=== PATIENT | female | born 1940 | race Caucasian/White ===

== ENCOUNTER 2023-09-26 13:03 | Outpatient (AMB) | payer MEDICARE, OTHER, SELFPAY ==
--- NOTE | 2023-09-26 13:17 | HO.NEPHOV_ITS ---
Intake Vital Signs 09/26/23 13:21 Height 5 ft Weight 190 lb BMI 37.1 BP 130/78 Blood Pressure Location Rt brachial Position Sitting Pulse 96 Pulse Source Pulse Oximeter Intake Visit Reasons: CKD Automatic Casting Machine Operator Required: No Accompanied by: Brother Allergies No Known Allergies Allergy (Verified 09/26/23 13:17) HPI HPI Comments History of Present Illness Details Veronica is a elderly woman with a history of ischemic cardiomyopathy wi th EF of 25% by echo and 44% by nuclear. She has a history of chronic kidney disease. Back in April of 2023 she sustained acute kidney injury with a creatinine peaking at 2.5 mg/dL. Recent creatinine is 1.3 mg/dL. She is currently in a wheelchair. Accompanied by her son. She is waiting for home oxygen. Assessment & Plan Assessment & Plan (1) CKD (chronic kidney disease) stage 3, GFR 30-59 ml/min: Code(s): N18.30 - Chronic kidney disease, stage 3 unspecified Qualifiers: Chronic kidney disease stage 3 subtype: stage 3b (GFR 30-44) Qualified Code(s): N18.32 - Chronic kidney disease, stage 3b Plan CKD 3B. SUAD has resolved. Serum creatinine has returned to 1.3 mg/dL. Renal ultrasound?suggestive of right renal atrophy, however no obstructive etiology -Losartan on hold Continue to avoid nephrotoxic agents including NSAIDs. She will benefit from SGLT 2 inhibitors. Chronic heart failure with reduced ejection fraction, EF 25 to 30% Appears well compensated. She will continue to follow-up with cardiology. Hypertension : Blood pressure is acceptable. She continue with the low-sodium diet. No change in antihypertensive medications. Edema : Keep torsemide po 40mg 2x/day Normocytic anemia Thrombocytopenia, ?chronic, at baseline Status post colostomy/history of intestinal obstruction Patient has had colostomy for many years, no blood loss has been reported from colostomy. h/o Left thyroid lobe CT: Left thyroid lobe 2.5 cm isodense nodule is unchanged from 2017. Orders: Orders Blood Urea Nitrogen 4 Months N18.30 - Chronic kidney disease, stage 3 unspecified Calcium 4 Months N18.30 - Chronic kidney disease, stage 3 unspecified Electrolytes 4 Months N18.30 - Chronic kidney disease, stage 3 unspecified Creatinine 4 Months N18.30 - Chronic kidney disease, stage 3 unspecified Complete Blood Count Auto Diff 4 Months N18.30 - Chronic kidney disease, stage 3 unspecified Coding Level of Care Code Est Pt Level 4 (60143) Diagnoses Stage 3b chronic kidney disease N18.32 Chronic kidney disease stage 3 subtype: stage 3b (GFR 30-44) [facility] Medical History (Updated 09/26/23 @ 13:48 by Torres Branham MD) CKD (chronic kidney disease) Colostomy in place Family History (Updated 09/26/23 @ 13:20 by Ro Theodore MA) Mother CKD (chronic kidney disease) Father Cancer Maternal Grandmother CKD (chronic kidney disease) Social History (Updated 09/26/23 @ 13:20 by Ro Theodore MA) Alcohol intake: never Patient Tobacco Use Status: Former Tobacco user Use of substances other than those prescribed or required for medical reasons: No Results Reviewed Results Reviewed: As of August 29 toe Sodium 143 Potassium 3.6 BUN 39 Creatinine 1.3 Hemoglobin 12.3
[2023-09-26 13:21] VITALS: BP 130/78; PULSE 96; BMI 37.1
== END 2023-09-26 13:39 | disposition home or self-care (01) ==
PROVIDERS: Visit Provider Internal Medicine Hypertension Specialist
DX: I12.9 Hypertensive chronic kidney disease with stage 1 through stage 4 chronic kidney disease, or unspecified chronic kidney disease (principal)
CPT/HCPCS: 99214

== ENCOUNTER → 2023-09-26 13:03 | Outpatient (BNVA) | payer MEDICARE, OTHER, SELFPAY | PROVIDERS: Visit Provider Internal Medicine Hypertension Specialist | DX: N18.32 Chronic kidney disease, stage 3b (principal); D64.9 Anemia, unspecified; D69.6 Thrombocytopenia, unspecified | CPT/HCPCS: 99212 ==

== ENCOUNTER 2024-02-19 13:49 | Outpatient (AMB) | payer MEDICARE, OTHER, SELFPAY ==
[2024-02-19 13:51] VITALS: BP 168/52; PULSE 82; O2SAT 98; BMI 35.2
--- NOTE | 2024-02-19 13:51 | HO.NEPHOV ---
HPI HPI Comments History of Present Illness Details Veronica is a elderly woman with a history of ischemic cardiomyopathy with EF of 25% by echo and 44% by nuclear. She has a history of chronic kidney disease. Back in April of 2023 she sustained acute kidney injury with a creatinine peaking at 2.5 mg/dL. She is currently in a wheelchair. Accompanied by her son. She is on home oxygen. [facility] Medical History (Updated 09/26/23 @ 13:48 by Torres Branham MD) CKD (chronic kidney disease) Colostomy in place Family History Mother CKD (chronic kidney disease) Father Cancer Maternal Grandmother CKD (chronic kidney disease) Social History Alcohol intake: never Patient Tobacco Use Status: Former Tobacco user Vital Signs 02/19/24 13:51 02/19/24 14:12 Height 5 ft Weight 180 lb BMI 35.2 BP 168/52 H 140/60 H Blood Pressure Location Lt brachial Rt brachial Position Sitting Sitting Pulse 82 Pulse Source Pulse Oximeter Pulse Oximetry (%) 98 Oxygen Delivery Method Room Air Physical Exam Vital Signs: Last Vital Signs Pulse 82 02/19/24 13:51 BP 168/52 H 02/19/24 13:51 Pulse Ox 98 02/19/24 13:51 Oxygen Delivery Method Room Air 02/19/24 13:51 BMI result Body Mass Index 35.2 Const General: comfortable Nutritional Appearance: well nourished Orientation/consciousness: patient oriented x3 Limitations: wheelchair HEENT Head: No normal to inspection Mouth: moist mucous membranes Neck Neck: Yes supple and Yes no JVD Resp Auscultation: clear to auscultation bilaterally, no rales and rub present Cardio Jugular venous distension: no JVD Palpation: no palpable S3 and no palpable S4 Heart sounds: no rubs GI Palpation (GI): Soft to palpation and nontender Percussion: No Fluid wave present General: Yes no CVA tenderness Back/Spine/Pelvis Back: no CVA tenderness Skin General skin exam: no rashes or lesions noted Neuro General: patient oriented x3 Extrem General: No clubbing Right lower extremity: ankle Left lower extremity: ankle Assessment & Plan Assessment & Plan (1) CKD (chronic kidney disease) stage 3, GFR 30-59 ml/min: Code(s): N18.30 - Chronic kidney disease, stage 3 unspecified Qualifiers: Chronic kidney disease stage 3 subtype: stage 3b (GFR 30-44) Qualified Code(s): N18.32 - Chronic kidney disease, stage 3b Plan CKD 3B. Renal ultrasound?suggestive of right renal atrophy, however no obstructive etiology -Losartan on hold Continue to avoid nephrotoxic agents including NSAIDs. OK to stop Omeprazole She will benefit from SGLT 2 inhibitors. Chronic heart failure with reduced ejection fraction, EF 25 to 30% Appears well compensated. She will continue to follow-up with cardiology. Hypertension : Blood pressure is acceptable. She continue with the low-sodium diet. No change in antihypertensive medications. Edema : Keep torsemide po 40mg 2x/day Normocytic anemia Thrombocytopenia, ?chronic, at baseline Status post colostomy/history of intestinal obstruction Patient has had colostomy for many years, no blood loss has been reported from colostomy. h/o Left thyroid lobe CT: Left thyroid lobe 2.5 cm isodense nodule is unchanged from 2017. Orders: Orders TSH reflex Free T4 4 Months N18.30 - Chronic kidney disease, stage 3 unspecified Complete Blood Count no Diff 4 Months N18.30 - Chronic kidney disease, stage 3 unspecified Comprehensive Met. Panel 4 Months N18.30 - Chronic kidney disease, stage 3 unspecified, N18.9 - Chronic kidney disease, unspecified Coding Level of Care Code Est Pt Level 4 (07319) Diagnoses Stage 3b chronic kidney disease N18.32 Chronic kidney disease stage 3 subtype: stage 3b (GFR 30-44) Results Reviewed Nephrology Results: No Data to Display
[2024-02-19 14:12] VITALS: BP 140/60
== END 2024-02-19 14:25 | disposition home or self-care (01) ==
PROVIDERS: Visit Provider Internal Medicine Hypertension Specialist
DX: N18.32 Chronic kidney disease, stage 3b (principal)
CPT/HCPCS: 99214

== ENCOUNTER → 2024-02-19 13:49 | Outpatient (BNVA) | payer MEDICARE, OTHER, SELFPAY | PROVIDERS: Visit Provider Internal Medicine Hypertension Specialist | DX: N18.32 Chronic kidney disease, stage 3b (principal) | CPT/HCPCS: 99212 ==

== ENCOUNTER → 2024-06-17 08:44 | Outpatient (BNVA) | payer MEDICARE, OTHER, SELFPAY | PROVIDERS: PCP Physician Assistant Medical; Visit Provider Internal Medicine Hypertension Specialist ==

== ENCOUNTER → 2024-06-17 10:29 | Outpatient (AMB) | payer MEDICARE, OTHER, SELFPAY ==
--- NOTE | 2024-06-17 08:44 | HO.NEPHOV_ITS ---
Intake Visit Reasons: 4 MONTH F/U Psychologist Private Practice Required: No Accompanied by: Self / Same As Patient Allergies No Known Allergies Allergy (Verified 06/17/24 08:45) HPI Comments Details: Veronica is a elderly woman with a history of ischemic cardiomyopathy with EF of 25% by echo and 44% by nuclear. She has a history of chronic kidney disease. Back in April of 2023 she sustained acute kidney injury with a creatinine peaking at 2.5 mg/dL. She is currently in a wheelchair. Accompanied by her son. She is on home oxygen. [facility] Medical History (Updated 09/26/23 @ 13:48 by Torres Branham MD) CKD (chronic kidney disease) Colostomy in place Family History Mother CKD (chronic kidney disease) Father Cancer Maternal Grandmother CKD (chronic kidney disease) Social History Alcohol intake: never Patient Tobacco Use Status: Former Tobacco user Telehealth Telehealth Location of provider rendering services: practice address Location of patient: address on file Patient Identification confirmed using: Name, : Yes Telehealth method: voice only Patient verbally consented to treatment: Yes Patient verbally consented to billing insurance company: Yes Patient informed of any privacy concerns related to visit: Yes Minutes spent on Phone/Video with Pt.: 10 Results Reviewed Nephrology Results: No Data to Display Assessment & Plan Assessment & Plan (1) CKD (chronic kidney disease) stage 3, GFR 30-59 ml/min: Code(s): N18.30 - Chronic kidney disease, stage 3 unspecified Category: Medical Qualifiers: Chronic kidney disease stage 3 subtype: stage 3b (GFR 30-44) Qualified Code(s): N18.32 - Chronic kidney disease, stage 3b Plan CKD 3B. Renal ultrasound?suggestive of right renal atrophy, however no obstructive etiology -Losartan on hold Continue to avoid nephrotoxic agents including NSAIDs. OK to stop Omeprazole She will benefit from SGLT 2 inhibitors. Chronic heart failure with reduced ejection fraction, EF 25 to 30% Appears well compensated. She will continue to follow-up with cardiology. Hypertension : Blood pressure is acceptable. She continue with the low-sodium diet. No change in antihypertensive medications. Edema : Keep torsemide po 40mg 2x/day Normocytic anemia Thrombocytopenia, ?chronic, at baseline Status post colostomy/history of intestinal obstruction Patient has had colostomy for many years, no blood loss has been reported from colostomy. h/o Left thyroid lobe CT: Left thyroid lobe 2.5 cm isodense nodule is unchanged from 2017. Orders: Orders Comprehensive Met. Panel Today N18.32 - Chronic kidney disease, stage 3b Complete Blood Count Auto Diff Today N18.32 - Chronic kidney disease, stage 3b Coding Level of Care Code Tele Est Pt Level 2 (98636) Diagnoses Stage 3b chronic kidney disease N18.32 Chronic kidney disease stage 3 subtype: stage 3b (GFR 30-44)
== END | disposition home or self-care (01) ==
LOC: HO.HKAS 08:44
PROVIDERS: PCP Physician Assistant Medical; Visit Provider Internal Medicine Hypertension Specialist
DX: N18.32 Chronic kidney disease, stage 3b (principal)
CPT/HCPCS: 99441

== ENCOUNTER 2024-10-21 13:30 | Outpatient (AMB) | payer MEDICARE, OTHER, SELFPAY ==
[2024-10-21 13:30] VITALS: BMI 33.8
--- NOTE | 2024-10-21 13:30 | HO.NEPHOV ---
Vital Signs 10/21/24 13:30 Height 5 ft Weight 173 lb BMI 33.8 Intake Visit Reasons: 4 mo fu w/ labs/ Conf Preformer [employer] Required: No Accompanied by: Self / Same As Patient Allergies No Known Allergies Allergy (Verified 10/21/24 13:30) Medication List - Last Reconciled 10/21/24 by Torres Branham MD albuterol sulfate 90 mcg/actuation inhalation carvedilol 25 mg PO BID ferrous sulfate 325 mg PO BID hydralazine 50 mg PO QID nifedipine ER 90 mg PO DAILY pantoprazole 40 mg PO DAILY rosuvastatin 5 mg PO DAILY spironolactone 25 mg PO DAILY torsemide 40 mg PO BID HPI Comments Details: Veronica is a elderly woman with a history of ischemic cardiomyopathy with EF of 25% by echo and 44% by nuclear. She has a history of chronic kidney disease. Back in April of 2023 she sustained acute kidney injury with a creatinine peaking at 2.5 mg/dL. She is currently in a wheelchair. Accompanied by her son. She is on home oxygen. [facility] Medical History (Updated 09/26/23 @ 13:48 by Torres Branham MD) CKD (chronic kidney disease) Colostomy in place Family History Mother CKD (chronic kidney disease) Father Cancer Maternal Grandmother CKD (chronic kidney disease) Social History Alcohol intake: never Patient Tobacco Use Status: Former Tobacco user Physical Exam Vital Signs: BMI result Body Mass Index 33.8 Telehealth Telehealth Telehealth Platform: Telephone Location of provider rendering services: practice address Location of patient: address on file Telehealth method: voice only Results Reviewed Nephrology Results: No Data to Display Assessment & Plan Assessment & Plan (1) CKD (chronic kidney disease) stage 3, GFR 30-59 ml/min: Code(s): N18.30 - Chronic kidney disease, stage 3 unspecified Category: Medical Qualifiers: Chronic kidney disease stage 3 subtype: stage 3b (GFR 30-44) Qualified Code(s): N18.32 - Chronic kidney disease, stage 3b Plan CKD 3B. Renal ultrasound?suggestive of right renal atrophy, however no obstructive etiology -Losartan on hold Continue to avoid nephrotoxic agents including NSAIDs. OK to stop Omeprazole She will benefit from SGLT 2 inhibitors. Chronic heart failure with reduced ejection fraction, EF 25 to 30% Appears well compensated. She will continue to follow-up with cardiology. Hypertension : Blood pressure is acceptable. She continue with the low-sodium diet. No change in antihypertensive medications. Edema : Keep torsemide po 40mg 2x/day Normocytic anemia Thrombocytopenia, ?chronic, at baseline Status post colostomy/history of intestinal obstruction Patient has had colostomy for many years, no blood loss has been reported from colostomy. h/o Left thyroid lobe CT: Left thyroid lobe 2.5 cm isodense nodule is unchanged from 2017. Orders: Orders Basic Metabolic Panel 4 Months N18.32 - Chronic kidney disease, stage 3b Coding Level of Care Code Tele Est Pt Level 2 (80220) Diagnoses Stage 3b chronic kidney disease N18.32 Chronic kidney disease stage 3 subtype: stage 3b (GFR 30-44) Time Spent (min) 14
== END 2024-10-21 16:55 | disposition home or self-care (01) ==
PROVIDERS: PCP Physician Assistant Medical; Visit Provider Internal Medicine Hypertension Specialist
DX: N18.32 Chronic kidney disease, stage 3b (principal)
CPT/HCPCS: 99442

== ENCOUNTER 2025-02-17 09:42 | Outpatient (AMB) | payer MEDICARE, OTHER, SELFPAY ==
[2025-02-17 09:44] VITALS: BP 162/62; PULSE 69; O2SAT 97
--- NOTE | 2025-02-17 09:44 | HO.NEPHOV ---
Vital Signs 02/17/25 09:44 02/17/25 09:58 Height 5 ft BP 162/62 H 134/60 Blood Pressure Location Lt brachial Lt brachial Position Sitting Sitting Pulse 69 Pulse Source Pulse Oximeter Pulse Oximetry (%) 97 Oxygen Delivery Method Room Air Intake Visit Reasons: CKD/ Conf Automatic Grinding Machine Operator Required: No Accompanied by: Spouse Allergies No Known Allergies Allergy (Verified 02/17/25 09:46) Medication List - Last Reconciled 02/17/25 by Torres Branham MD albuterol sulfate 90 mcg/actuation inhalation carvedilol 25 mg PO BID ferrous sulfate 325 mg PO BID hydralazine 50 mg PO QID nifedipine ER 90 mg PO DAILY pantoprazole 40 mg PO DAILY rosuvastatin 5 mg PO DAILY spironolactone 50 mg PO DAILY torsemide 40 mg PO BID HPI Comments Details: Veronica is a elderly woman with a history of ischemic cardiomyopathy with EF of 25% by echo and 44% by nuclear. She has a history of chronic kidney disease. Back in April of 2023 she sustained acute kidney injury with a creatinine peaking at 2.5 mg/dL. She is currently in a wheelchair. Accompanied by her son. She is on home oxygen. [facility] Medical History (Updated 02/17/25 @ 10:00 by Torres Branham MD) CKD (chronic kidney disease) Colostomy in place Family History Mother CKD (chronic kidney disease) Father Cancer Maternal Grandmother CKD (chronic kidney disease) Social History Alcohol intake: never Patient Tobacco Use Status: Former Tobacco user Physical Exam Vital Signs: Last Vital Signs Pulse 69 02/17/25 09:44 BP 162/62 H 02/17/25 09:44 Pulse Ox 97 02/17/25 09:44 Oxygen Delivery Method Room Air 02/17/25 09:44 Const General: comfortable Nutritional Appearance: well nourished Orientation/consciousness: patient oriented x3 Limitations: wheelchair HEENT Head: No normal to inspection Mouth: moist mucous membranes Neck Neck: Yes supple and Yes no JVD Resp Auscultation: clear to auscultation bilaterally and no rales Cardio Jugular venous distension: no JVD Palpation: no palpable S3 and no palpable S4 Heart sounds: no rubs GI Palpation (GI): Soft to palpation and nontender Percussion: No Fluid wave present General: Yes no CVA tenderness Back/Spine/Pelvis Back: no CVA tenderness Skin General skin exam: no rashes or lesions noted Neuro General: patient oriented x3 Extrem General: No clubbing Right lower extremity: ankle Left lower extremity: ankle Results Reviewed Nephrology Results: No Data to Display Assessment & Plan Assessment & Plan (1) CKD (chronic kidney disease) stage 3, GFR 30-59 ml/min: Comment: Cr 1.75 as on 02/11/25 Code(s): N18.30 - Chronic kidney disease, stage 3 unspecified Category: Medical Qualifiers: Chronic kidney disease stage 3 subtype: stage 3b (GFR 30-44) Qualified Code(s): N18.32 - Chronic kidney disease, stage 3b Plan CKD 3B. Renal ultrasound?suggestive of right renal atrophy, however no obstructive etiology -Losartan on hold Continue to avoid nephrotoxic agents including NSAIDs. OK to stop Omeprazole She will benefit from SGLT 2 inhibitors. Chronic heart failure with reduced ejection fraction, EF 25 to 30% Appears well compensated. She will continue to follow-up with cardiology. Hypertension : Blood pressure is acceptable. She continue with the low-sodium diet. No change in antihypertensive medications. Edema : Keep torsemide po 40mg 2x/day Normocytic anemia Thrombocytopenia, ?chronic, at baseline Status post colostomy/history of intestinal obstruction Patient has had colostomy for many years, no blood loss has been reported from colostomy. h/o Left thyroid lobe CT: Left thyroid lobe 2.5 cm isodense nodule is unchanged from 2017. Orders: Orders Basic Metabolic Panel 6 Months N18.32 - Chronic kidney disease, stage 3b Complete Blood Count no Diff Today N18.32 - Chronic kidney disease, stage 3b Coding Level of Care Code Est Pt Level 4 (09196) Diagnoses Stage 3b chronic kidney disease N18.32 Chronic kidney disease stage 3 subtype: stage 3b (GFR 30-44)
[2025-02-17 09:58] VITALS: BP 134/60
--- OUTSIDE RECORDS SUMMARY | 2025-02-17 10:52 | XMS_ITS | Encounter Summary ---
Author Organization [facility] Address [address] [place] [address] Care Team Providers Care Tower Erector Helper Name Role Phone Jamal Roman Primary Care Provider [phone] Reason for Visit * Reason Onset Date Comments Cough 01/18/2025 Encounter Details Date Type Department Care Team ([facility] st Contact Info) Description 01/18/2025 Telephone Adult Medicine [facility] [address] [place] [phone] Jamal Roman PA [address] [place] [address] Cough Social History Tobacco Use Types Packs/Day Years Used Date Smoking Tobacco: Former Cigarettes 0.5 1.1 1 - 10/10/2021 Smokeless Tobacco: Current Alcohol Use Standard Drinks/Week Comments Yes 0 (1 standard drink = 0.6 oz pur e alcohol) Comments Unknown Sex and Gender Information Value Date Recorded Sex Assigned at Not on file Legal Sex Female 11:14 AM EST Gender Identity Not on file Sexual Orientation Not on file documented as of this encounter Progress Notes * Misa Ventura RN - 01/18/2025 10:39 AM EST Spoke with the pt She is having problems breathing When sitting quiet she is ok with her breathing She gets SOB when moving around. States she has a lot of mucous. He daughter is giving her a pill but she doesn't know the name of it She is breathing a little better today. Asking for an ABX Advised not able to give an ABX without a visit for eval She is speaking incomplete sentences, no cough, wheeze, stridor or distress noted. Scheduled eval for 01/19 at 11 am * Yanely Araya - 01/18/2025 9:12 AM EST Patient call requires triage: Symptoms patient is presenting: patient is calling in today stating she has a cough and has a trouble breathing, also spitting up mucus. PT is requesting antibiotics to be sent to pharmacy she doesn't want to come in How long has patient had these symptoms?: 1 week For ALL patients calling to schedule any appointment (routine, sick visit, follow up, consult, etc.) in the outpatient setting please ask the following questions: Do you have fever of higher than 101, sore throat with difficulty swallowing or severe shortness ofbreath? no If YES to any of these above symptoms, send a message to triage and do not book. Red dot. If no, an audio or video visit should be booked. Have you had close contact with someone with Coronavirus in the last 14 days? no Have you traveled abroad? no Have you traveled recently to another state outside of [place], [place], [place], [place], [place], [place], [place]? no o If yes, did you quarantine for 14 days or have a negative covid test? no If yes to any of the above, patient is not to be scheduled in office until after 14 day quarantine or negative covid test. If pain or injury related was it due to an accident at work or from a motor vehicle accident? If yes, date of accident/Injury: No If yes, gather 3rd libertarian insurance information [employer] Party Information: not applicable PCP: LAURI Trinidad Payor: MEDICARE / Plan: MEDICARE PART A & B / Product Type: Medicare / documented in this encounter Plan of Treatment Upcoming Encounters Date Type Department Care Team ([facility] st Contact Info) Description 02/24/2025 12:30 PM EDT [facility] [address] [place] [address] Kaushal Fernandez 02/24/2025 1:20 PM EDT [facility] [address] [place] [address] Salima Martinez, JAYNE [address] [facility] [address] [place] [address] 05/26/2025 2:30 PM EDT Office Visit Adult Medicine [facility] [address] [place] [address] Jamal Roman PA [address] [place] [address] documented as of this encounter Visit Diagnoses Not on filedocumented in this encounter Care Teams Tower Erector Helper Relationship Specialty Start Date End Date Jamal Roman PA [address] [place] [id number] PCP - General Internal Medicine 02/22/21 documented as of this encounter
--- OUTSIDE RECORDS SUMMARY | 2025-02-17 10:52 | XMS_ITS | Encounter Summary ---
Author Organization [facility] Address [address] [place] [address] Care Team Providers Care College Service Officer Name Role Phone Jamal Roman Primary Care Provider [phone] [phone] Reason for Visit * Reason Comments Cough Shortness of Breath Encounter Details Date Type Department Care Team ([facility] st Contact Info) Description 01/19/2025 11:15 AM EST Office Visit Adult Medicine [address] [address] Dinora Bravo PA [address] [place] [phone] Chronic obstructive pulmonary disease with acute exacerbation (CMS/HCC) (Primary Dx); Chronic hypoxemic respiratory failure (CMS/HCC); Stage 3b chronic kidney disease (CMS/HCC); Upper respiratory tract infection, unspecified type; Essential hypertension, benign Social History Tobacco Use Types Packs/Day Years [...] on file documented as of this encounter Last Filed Vital Signs Vital Sign Reading Time Taken Comments Blood Pressure 165/100 01/19/2025 11:08 AM EST Pulse 71 01/19/2025 11:08 AM EST Temperature 36.6 ??C (97.9 ??F) 01/19/2025 11:[address] Respiratory Rate 16 01/19/2025 11:08 AM EST Oxygen Saturation 93% 01/19/2025 11:08 AM EST Inhaled Oxygen Concentration - - Weight 76.7 kg (169 lb) 01/19/2025 11:08 AM EST Height 152.4 cm (5') 01/19/2025 11:08 AM EST Body Mass Index 33.01 01/19/2025 11:08 AM EST documented in this encounter Ordered Prescriptions Prescription Sig Dispense Quantity Refills Last Filled Start Date End Date albuterol HFA (Proventil HFA) 90 mcg/actuation inhalerIndications :Chronic obstructive pulmonary disease with acute exacerbation ([facility]),Chronic hypoxemic respiratory failure,Stage 3b chronic kidney disease ([facility]),Upper respiratory tract infection, unspecified type,Essential hypertension, benign Inhale 2 puffs by mouth every 4 (four) hours if needed for wheezing or shortness of breath. 6.7 g 01/19/2025 amoxicillin-clavul anate (AUGMENTIN) 875-125 mg per tablet Take 1 tablet by mouth 2 (two) times a day for 10 days. 20 each 01/19/2025 5 documented in this encounter Progress Notes * LAURI Tran - 01/19/2025 11:15 AM EST CHIEF COMPLAINT: Cough and Shortness of Breath IDENTIFIER: Veronica Quan is a 84 y.o. old female. HPI: Veronica Quan is a 84 y.o. old female with past medical history of COPD, chronic hypoxia on 2L O2 supplement, former smoker presents today for evaluation of ongoing cough, shortness of breath for over 1 week. She reports productive cough. No fevers. Reports chills. She states sputum is green and white in color. She reports sick contact with her adult children whoshe currently lives with. She has trial otc medications without relief. She has history of CKD and her last GFR stable. ROS: See HPI PAST MEDICAL HISTORY: Patient Active Problem List Diagnosis Date Noted Chronic hypoxemic respiratory failure ([facility]) 08/01/2023 Stage 2 moderate COPD by GOLD classification ([facility]) 08/01/2023 Acute on chronic systolic congestive heart failure [place] 11/09/[address] [place] 09/21/2021 Congenital solitary kidney 09/21/2021 Unsteady gait 09/23/2019 CKD (chronic kidney disease) stage 3, GFR 30-59 ml/min ([facility] 01/09/2019 Mixed hyperlipidemia 06/18/2017 Nephrolithiasis 12/24/2016 Morbid obesity ([facility]) 11/11/2014 Contact dermatitis and eczema 11/19/2006 Essential hypertension, benign 11/19/2006 Past Surgical History: Procedure Laterality Date COLONOSCOPY 10/27/07 PROCEDURE: KS COLONOSCOPY STOMA DX INCLUDING COLLJ SPEC SPX; COMMENT: Up to cecum, regular preparation, sigmoid polyp-removed(tubular adenoma) COLONOSCOPY 05/04/11 PROCEDURE: KS COLONOSCOPY STOMA DX INCLUDING COLLJ SPEC SPX; COMMENT: normal; repeat in five eyars CYSTOSCOPY 12/16/16 PROCEDURE: HISTORICAL CYSTOSCOPY; COMMENT: R UVJ stent OTHER SURGICAL HISTORY PROCEDURE: HISTORICAL TOTAL HYSTERECTOMY W/O BSO OTHER SURGICAL HISTORY PROCEDURE: LAPAROSCOPIC CHOLECYSTECT OTHER SURGICAL HISTORY 2018 PROCEDURE: KS COLOSTOMY/SKIN LEVEL CECOSTOMY; COMMENT: bmc large bowel obstruction due to incarcerated umbilical hernia requiring colostomy SOCIAL HISTORY: Social History Tobacco Use Smoking status: Former Current packs/day: 0.00 Average packs/day: 0.5 packs/day for 1.1 years (0.6 ttl pk-yrs) Types: Cigarettes Start date: 08/25/2020 Quit date: 10/10/2021 Years since quittin.2 Smokeless tobacco: Current Substance Use Topics Alcohol use: Yes FAMILY HISTORY: Family History Problem Relation Name Age of Onset Breast cancer Neg Hx Family Status Relation Name Status Neg Hx (Not Specified) Mother ?DM, CHF Father some form of bone cancer Sister Alive 1, no known medical problems Brother Alive 3, no known medical problems Son Alive Brother Alive Brother Alive No partnership data on file MEDICATIONS DISCONTINUED/REORDERED: Medications Discontinued During This Encounter Medication Reason albuterol HFA (PROAIR HFA ; PROVENTIL HFA ; VENTOLIN HFA) 90 mcg/actuation inhaler Reorder ACTIVE MEDICATIONS: Outpatient Medications Marked as Taking for the 01/19/25 encounter (Office Visit) with LAURI Tran Medication Sig Dispense Refill acetaminophen (TYLENOL) 325 mg tablet 650 mg, = 2 tab, Tab, Oral, q4hr PRN, Refills 0, Moderate pain ascorbic acid, vitamin C, 500 mg capsule Take by mouth. aspirin 81 mg EC tablet Take 1 tablet (81 mg total) by mouth. carvediloL (COREG) 25 mg tablet TAKE 1 TABLET BY MOUTH TWICE A DAY 180 tablet 3 cholecalciferol (VITAMIN D-3) 25 mcg (1,000 unit) capsule Take 25 mcg by mouth. ferrous sulfate 325 mg (65 mg elemental iron) tablet Take 1 tablet (325 mg total) by mouth every other day. hydrALAZINE (APRESOLINE) 50 mg tablet Take 1 tablet (50 mg total) by mouth 4 (four) times a day. multivitamin (MULTIPLE VITAMINS ORAL) 1 tab, Tab, Oral, QLUNCH, Refills 0 NIFEdipine CC (ADALAT CC) 60 mg 24 hr tablet Take 1 tablet (60 mg total) by mouth 2 (two) times a day. pantoprazole (PROTONIX) 40 mg EC tablet TAKE 1 TABLET BY MOUTH EVERY DAY 90 tablet 1 rosuvastatin (CRESTOR) 5 mg tablet TAKE 1 TABLET BY MOUTH EVERY DAY 90 tablet 3 spironolactone (Aldactone) 50 mg tablet Take 1 tablet (50 mg total) by mouth 1 (one) time each day.90 each 3 torsemide (DEMADEX) 20 mg tablet Take 2 tablets (40 mg total) by mouth 2 (two) times a day. zinc sulfate (ZINCATE) 220 mg (50 mg elemental zinc) capsule Take 1 capsule (220 mg total) by mouth. [DISCONTINUED] albuterol HFA (PROAIR HFA ; PROVENTIL HFA ; VENTOLIN HFA) 90 mcg/actuation inhaler Inhale 2 puffs by mouth every 4 (four) hours if needed for wheezing. ALLERGIES: Allergies Allergen Reactions Azithromycin Anaphylaxis Anaphylaxis with azithromycin during hospitalization for pneumonia Ezetimibe tired and achy Pravastatin Tired and muscle aches Simvastatin tired and mucles aches PHYSICAL EXAM: Vitals: 01/19/25 1108 BP: (!) 165/100 Pulse: 71 Resp: 16 Temp: 36.6 ??C (97.9 ??F) SpO2: 93% APPEARANCE: Alert and in no acute distress. She is sitting in wheel chair. EYES: PERRLA, conjunctiva and sclera normal. EARS: External ears normal. Canals clear. TMs normal. NOSE/SINUS: Nares normal. Septum midline. Mucosa normal. No drainage or sinus tenderness. MOUTH/THROAT: no erythema or exudates NECK: Neck supple, no adenopathy, thyroid symmetric and of normal size HEART: RRR with normal S1 and S2, no murmurs, no gallops CHEST: non-tender to palpation, no crepitation LUNG: rales noted in the left lower lung bhagat with no wheezing or rhonchi. Able to talk in full complete sentences LABS: Results for orders placed or performed in visit on 10/08/24 Lipid panel Collection Time: 06/29/21 12:00 AM Result Value Ref Range LDL/HDL Ratio 6 (A) 0 - 4 Triglycerides 628 (A) 0 - 150 mg/dL Cholesterol 226 (A) 0 - 200 mg/dL HDL 36 (A) >=40 mg/dL LDL Cholesterol 132 (A) 0 - 100 mg/dL Annual BMP Blood Test Collection Time: 06/29/21 12:00 AM Result Value Ref Range Annual BMP Blood Test Abstracted Hm Medicare Annual Wellness Visit Collection Time: 03/16/24 12:00 AM Result Value Ref Range Medicare Annual Wellness Visit Abstracted Depression Screening Collection Time: 03/16/24 12:00 AM Result Value Ref Range Depression Screening Abstracted Falls Risk Assessment Collection Time: 03/16/24 12:00 AM Result Value Ref Range Falls Risk Assessment Abstracted IMAGING: Chest x ray ordered today. IMPRESSION: 1. Chronic obstructive pulmonary disease with acute exacerbation ([facility]) 2. Chronic hypoxemic respiratory failure ([facility]) 3. Stage 3b chronic kidney disease ([facility]) 4. Upper respiratory tract infection, unspecified type 5. Essential hypertension, benign PLAN: Patient started on Augmentin BID x 10 day and refilled albuterol inhaler q4 hours as needed for shortness of breath. Side effects discussed. I sent her down for chest x-ray today to rule out pneumonia. She will continue with O2 supplementations. Follow up with care team and bobbin loose end finder as scheduled. She was advised if any worsening symptoms she should call office or get evaluation at the ED. Blood pressure today is elevated. Patient is recommended to check BP at home and maintain a BP log.Please call our office if blood pressure more than 140/90, more than a couple of times. Follow up as needed. All questions and concerns were addressed. Veronica Quan verbalizes understanding and agrees with this treatment plan. Patient was reminded to call or return to the office if any new or existing problems arise. Orders Placed This Encounter Procedures XR Chest 2 Views None LAURI Tran on 01/19/2025 at 12:34 PM EST Today's documentation was made using voice recognition software.This note may contain grammatical errors secondary to this software. documented in this encounter Plan of Treatment Upcoming Encounters Date Type Department Care Team (Late st Contact Info) Description 02/24/2025 12:30 PM EDT Procedure visit [facility] [address] [facility] [address] [place] [phone] Kaushal Fernandez 02/24/2025 1:20 PM EDT [facility] [address] [facility] [address] [place] [address] Salima Martinez NP [address] [facility] [address] [place] [address] 05/26/2025 2:30 PM EDT Office Visit Adult Medicine [facility] [address] [place] [address] Jamal Roman PA [address] [place] [address] documented as of this encounter Results * XR Chest 2 Views (01/19/2025 11:49 AM EST) Anatomical Region Laterality Modality Body Radiographic Iwona ging 01/19/2025 12:3 5 PM EST Impressions 01/19/2025 12:37 PM EST No acute pulmonary pathology. -------- FINAL REPORT -------- Dictated By: Carmen Chatman Dictated Date: 01/19/2025 12:35 ET Assigned Physician: Carmen Chatman Reviewed and Electronically Signed By: Carmen Chatman Signed Date: 01/19/2025 12:37 ET Workstation ID: [id number] Transcribed By: Self Edit Transcribed Date: 01/19/2025 12:35 ET Narrative 01/19/2025 12:37 PM EST CHEST, TWO VIEWS HISTORY: ?? Ongoing productive cough. Smoker. COPD. TECHNIQUE: Frontal and lateral views of the chest. PRIOR: Chest x-ray 11/09/2021. FINDINGS: The lungs are clear. No pleural effusion is seen. No pneumothorax is seen. The cardiac diameter is within normal limits. Ossification of the aortic knob No acute or aggressive appearing bony abnormalities are seen. ??There is curvature and degenerative change of the spine. Procedure Note Carmen Chatman MD - 01/19/2025 CHEST, TWO VIEWS HISTORY: Ongoing productive cough. Smoker. COPD. TECHNIQUE: Frontal and lateral views of the chest. PRIOR: Chest x-ray 11/09/2021. FINDINGS: The lungs are clear. No pleural effusion is seen. No pneumothorax is seen. The cardiac diameter is within normal limits. Ossification of the aorticknob No acute or aggressive appearing bony abnormalities are seen. There iscurvature and degenerative change of the spine. IMPRESSION: No acute pulmonary pathology. -------- FINAL REPORT -------- Dictated By: Carmen Chatman Dictated Date: 01/19/2025 12:35 ET Assigned Physician: Carmen Chatman Reviewed and Electronically Signed By: Carmen Chatman Signed Date: 01/19/2025 12:37 ET Workstation ID: [id number] Transcribed By: Self Edit Transcribed Date: 01/19/2025 12:35 ET Dinora Deweyuong Andrei Shelly CARREON IMG XR PROCEDURES Final Result documented in this encounter Visit Diagnoses Diagnosis Chronic obstructive pulmonary disease with acute exacerbation (CMS/HCC)- Primary Chronic hypoxemic respiratory failure Chronic respiratory failure Stage 3b chronic kidney disease (CMS/HCC) Upper respiratory tract infection, unspecified type Essential hypertension, benign Chronic obstructive pulmonary disease, unspecified COPD type (CMS/HCC) Chronic hypoxemic respiratory failure Chronic respiratory failure Stage 2 moderate COPD by GOLD classification (CMS/HCC) Stage 3b chronic kidney disease (CMS/HCC) Upper respiratory tract infection, unspecified type Essential hypertension, benign documented in this encounter Discontinued Medications Medication Sig Discontinue Reason Start Date End Da te albuterol HFA (PROAIR HFA ; PROVENTIL HFA ; VENTOLIN HFA) 90 mcg/actuation inhaler Inhale 2 puffs by mouth every 4 (four) hours if needed for wheezing. Reorder 10/27/2023 01/19/2025 documented as of this encounter Care Teams College Service Officer Relationship Specialty Start Date End Date Jamal Roman PA [address] [place] [address] PCP - General Internal Medicine 02/22/21 documented as of this encounter
--- OUTSIDE RECORDS SUMMARY | 2025-02-17 10:53 | XMS_ITS | Encounter Summary ---
Author Organization [facility] Address [address] [place] [address] Care Team Providers Care Transportation Lead Name Role Phone Jamal Roman Primary Care Provider [phone] Encounter Details Date Type Department Care Team (Latest Contact Info) Description 01/19/2025 11:34 AM EST - 01/19/2025 11:59 PM [facility] Encounter [facility] [address] [place] [address] Chronic obstructive pulmonary disease, unspecified COPD type (CMS/HCC); Chronic hypoxemic respiratory failure (CMS/HCC); Stage 2 moderate COPD by GOLD classification (CMS/HCC); Stage 3b chronic kidney disease (CMS/HCC); Upper respiratory tract infection, unspecified type; Essential hypertension, benign Discharge Disposition: Home or Self Care Social History Tobacco Use Types Packs/Day Years [...] on file documented as of this encounter Medications at Time of Discharge acetaminophen (TYLENOL) 325 mg tablet 650 mg, = 2 tab, Tab, Oral, q4hr PRN, Refills 0, Moderate pain 01/30/2017 albuterol HFA (Proventil HFA) 90 mcg/actuation inhalerIndications :Chronic obstructive pulmonary disease with acute exacerbation (CMS/HCC),Chronic hypoxemic respiratory failure,Stage 3b chronic kidney disease (CMS/HCC),Upper respiratory tract infection, unspecified type,Essential hypertension, benign Inhale 2 puffs by mouth every 4 (four) hours if needed for wheezing or shortness of breath. 6.7 g 01/19/2025 6 ascorbic acid, vitamin C, 500 mg capsule Take by mouth. aspirin 81 mg EC tablet Take 1 tablet (81 mg total) by mouth. 09/01/2022 carvediloL (COREG) 25 mg tablet TAKE 1 TABLET BY MOUTH TWICE A DAY 180 tablet 3 12/14/2024 cholecalciferol (VITAMIN D-3) 25 mcg (1,000 unit) capsule Take 25 mcg by mouth. 10/03/2021 hydrALAZINE (APRESOLINE) 50 mg tablet Take 1 tablet (50 mg total) by mouth 4 (four) times a day. 12/24/2023 multivitamin (MULTIPLE VITAMINS ORAL) 1 tab, Tab, Oral, QLUNCH, Refills 0 01/30/2017 NIFEdipine CC (ADALAT CC) 60 mg 24 hr tablet Take 1 tablet (60 mg total) by mouth 2 (two) times a day. 12/24/2023 pantoprazole (PROTONIX) 40 mg EC tablet TAKE 1 TABLET BY MOUTH EVERY DAY 90 tablet 1 12/08/2024 rosuvastatin (CRESTOR) 5 mg tablet TAKE 1 TABLET BY MOUTH EVERY DAY 90 tablet 3 12/16/2024 spironolactone (Aldactone) 50 mg tablet Take 1 tablet (50 mg total) by mouth 1 (one) time each day. 90 each 3 11/11/2024 torsemide (DEMADEX) 20 mg tablet Take 2 tablets (40 mg total) by mouth 2 (two) times a day. 11/05/2023 zinc sulfate (ZINCATE) 220 mg (50 mg elemental zinc) capsule Take 1 capsule (220 mg total) by mouth. amoxicillin-clavul anate (AUGMENTIN) 875-125 mg per tablet Take 1 tablet by mouth 2 (two) times a day for 10 days. 20 each 01/19/2025 5 ferrous sulfate 325 mg (65 mg elemental iron) tablet Take 1 tablet (325 mg total) by mouth every other day. 03/16/2024 5 documented as of this encounter Discharge Disposition Disposition Code Departure Means Destination Home or Self Care documented in this encounter Plan of Treatment Upcoming Encounters Date Type Department Care Team (Late st Contact Info) Description 02/24/2025 12:30 PM EDT Procedure visit Pulmonolgy - [place] [address] [facility] [address] [place] [phone] Rebecca Taryndustintien 02/24/2025 1:20 PM EDT Consult Pulmonol - [place] [address] [facility] [address] [place] [phone] Salima Martinez NP [address] [facility] [address] [place] [address] 05/26/2025 2:30 PM EDT Office Visit Adult Medicine [facility] [address] [place] [address] Jamal Roman PA [address] [place] [address] documented as of this encounter Procedures Procedure Name Priority Date/Time Associated Diagnosis Comments XR CHEST 2 VIEWS Routine 01/19/2025 11:4 9 AM EST Chronic obstructive pulmonary disease, unspecified COPD type (CMS/HCC) Chronic hypoxemic respiratory failure (CMS/HCC) Stage 2 moderate COPD by GOLD classification ([facility]) Stage 3b chronic kidney disease (CMS/HCC) Upper respiratory tract infection, unspecified type Essential hypertension, benign documented in this encounter Results * XR Chest 2 [...] Signed Date: 01/19/2025 12:37 ET Workstation ID: [id number] Transcribed By: Self Edit Transcribed Date: 01/19/2025 [...] Signed Date: 01/19/2025 12:37 ET Workstation ID: [id number] Transcribed By: Self Edit Transcribed Date: 01/19/2025 12:35 ET Dinora Ivanna Andrei Shelly CARREON IMG XR PROCEDURES Final Result documented in this encounter Visit Diagnoses Diagnosis Chronic obstructive pulmonary disease, unspecified COPD type (CMS/HCC) Chronic hypoxemic respiratory failure Chronic respiratory failure Stage 2 moderate COPD by GOLD classification (CMS/HCC) Stage 3b chronic kidney disease (CMS/HCC) Upper respiratory tract infection, unspecified type Essential hypertension, benign documented in this encounter Care Teams Transportation Lead Relationship Specialty Start Date End Date Jamal Roman PA [address] [place] [address] PCP - General Internal Medicine 02/22/21 documented as of this encounter
--- OUTSIDE RECORDS SUMMARY | 2025-02-17 10:53 | XMS_ITS | Encounter Summary ---
Author Organization [facility] Address [address] [place] [address] Care Team Providers Care Guest History Clerk Name Role Phone Jamal Roman Primary Care Provider [phone] Reason for Visit * Reason Onset Date Comments durable medical equipment 02/04/2025 Encounter Details Date Type Department Care Team (Late st Contact Info) Description [facility] [address] [place] [address] Salima Martinez NP [address] [place] [address] durable medical equipment Social History Tobacco Use Types Packs/Day Years [...] as of this encounter Progress Notes * Kanchan Jordan - 02/04/2025 11:24 AM EDT Oxygen therapy wso received via fax from [facility]. Forms on patient chart (ONBASE). documented in this encounter Plan of Treatment Upcoming Encounters Date Type Department Care Team (Late st Contact Info) Description 02/24/2025 12:30 PM EDT [facility] [address] [facility] [address] [place] [address] Kaushal Fernandez 02/24/2025 1:20 PM EDT Consult Pulmonolgy - [place] [address] [facility] [address] [place] [phone] Salima Martinez, JAYNE [address] [facility] [address] [place] [address] 05/26/2025 2:30 PM EDT Office Visit Adult Medicine [facility] [address] [place] [address] Jamal Roman PA [address] [place] [address] documented as of this encounter Visit Diagnoses Not on filedocumented in this encounter Care Teams Guest History Clerk Relationship Specialty Start Date End Date Jamal Roman PA [address] [place] [phone] PCP - General Internal Medicine 02/22/21 documented as of this encounter
--- OUTSIDE RECORDS SUMMARY | 2025-02-17 10:53 | XMS_ITS | Clinical Summary ---
Author Organization [facility] Address [address] [facility] [address] [place] [address] Phone Care Team Providers Care Express Clerk Name Role Phone Jamal Roman PA-C Primary Care Provider Allergies Active Allergy Reactions Criticality Noted Date Comments Ezetimibe 05/20/2007 tired and achy Pravastatin 11/09/2015 Tired and muscle aches Simvastatin 04/15/2007 tired and mucles aches Medications cholecalciferol (VITAMIN D-3) 25 MCG (1000 UT) capsule Take 1 capsule by mouth 1 (one) time each day Active Multiple Vitamin (multivitamin) tablet Take 1 tablet by mouth 1 (one) time each day Active Zinc Sulfate (ZINC 15 PO) Take 1 tablet by mouth 1 (one) time each day Active acetaminophen (TYLENOL) 325 MG tablet 650 mg, = 2 tab, Tab, Oral, q4hr PRN, Refills 0, Moderate pain 01/30/2017 Active ascorbic acid (VITAMIN C) 500 MG CR capsule Take by mouth Ac tive carvedilol (COREG) 6.25 MG tablet Take 25 mg by mouth in the morning and 25 mg in the evening. 11/09/2021 Active losartan (COZAAR) 50 MG tablet Take 25 mg by mouth 12/05/2021 Active NIFEdipine CC (ADALAT CC) 60 MG 24 hr tablet Take 1 tablet by mouth 1 (one) time each day Active aspirin (ST RONIT) 81 MG EC tablet Take 81 mg by mouth 2 (two) times a day if needed 09/01/2022 Active atorvastatin (LIPITOR) 40 MG tablet Take 1 tablet by mouth 1 (one) time each day 08/19/2022 Active furosemide (LASIX) 40 MG tablet Take 1 tablet by mouth in the morning and 1 tablet in the evening. 07/24/2022 Active Active Problems Problem Noted Date Diagnosed Date Anemia 03/13/2023 Acute on chronic systolic congestive heart failu re 11/09/2021 Overview (02/13/2022): Patient was hospitalized for shortness of breath September 2021. 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 09/21/2021 Acidosis 08/29/2021 Acute nontraumatic kidney injury 08/29/2021 Bacteremia 08/29/2021 Hypertensive disorder 08/29/2021 Edema 08/29/2021 Hypervolemia 08/29/2021 Iron deficiency anemia 08/29/2021 Hyperlipidemia 08/29/2021 Osteoarthritis 08/29/2021 Pyelonephritis 08/29/2021 Chronic kidney disease stage 3 01/09/2019 Nephrolithiasis 12/24/2016 History of cholecystectomy 12/11/2011 Immunizations Name Administration Dates Next Due Influenza Split High Dose Pr eservative Free IM 10/13/2020,08/12/2019 Influenza TIV (IM) 11/06/2016, 5,10/18/2014,10/21,12/11/2011,10/05/2010,11/08/2009 ,09/24/2008,09/08/2007 Pfizer SARS-COV-2 03/06/2021,02/11/2021 Pneumococcal Conjugate 13-Valent 11/06/2016 Pneumococcal Polysaccharide 04/21/2014, 7 Td 12/19/2006 Zoster 10/21/2013 Family History Medical History Relation Comments Cancer Father Bone Diabetes Mother Heart disease Mother CHF Hypertension Mother Kidney disease Mother Relation Status Comments Father Mother Social History Tobacco Use Types Packs/Day Years Used Date Smoking Tobacco: Former Smokeless Tobacco: Never Tobacco Cessation:Counseling Given: Not Answered Alcohol Use Standard Drinks/Week Comments Yes 0 (1 standard drink = 0.6 oz pure alcohol) Alcoholic Drinks/day: Occasional social drink Comments Unknown Sex and Gender Information Value Date Recorded Sex Assigned at Not on file Legal Sex Female 4:48 PM EST Gender Identity Not on file Sexual Orientation Not on file Last Filed Vital Signs Vital Sign Reading Time Taken Comments Blood Pressure 140/70 03/13/2023 1:49 PM EDT Pulse 73 03/13/2023 1:49 PM EDT Temperature - - Respiratory Rate - - Oxygen Saturation 93% 03/13/2023 1:49 PM EDT Inhaled Oxygen Concentration - - Weight 86.6 kg (191 lb) 03/13/2023 1:49 PM EDT Height 152.4 cm (5') 03/13/2023 1:49 PM EDT Body Mass Index 37.3 03/13/2023 1:49 PM EDT Plan of Treatment Health Maintenance Due Date Last Done Comments Influenza Vaccine (#1) 2024 , 10/13/2020, 08/12/2019, Additional history exists Pneumococcal Vaccine: 65+ Years Completed 10/12/2018, 11/06/2016, 04/21/2014, Additional history exists Hepatitis B Vaccine Aged Out No longe r eligible based on patient's age to complete this topic Insurance [facility]ICARE [facility] Care Teams Express Clerk Relationship Specialty Start Date End Date Jamal Roman PA-C PCP - General Physician Sessions Clerk 08/30/21
--- OUTSIDE RECORDS SUMMARY | 2025-02-17 10:53 | XMS_ITS | Clinical Summary ---
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 Name Role Phone Jamal Roman Primary Care Provider [phone] Allergies Active Allergy Reactions Criticality Noted Date Comments Azithromycin Anaphylaxis High 11/05/2023 Anaphylaxis with azithromycin during hospitalization for pneumonia Ezetimibe 05/20/2007 tired and achy Pravastatin 11/09/2015 Tired and muscle aches Simvastatin 04/15/2007 tired and mucles aches Medications multivitamin (MULTIPLE VITAMINS ORAL) 1 tab, Tab, Oral, QLUNCH, Refills 0 01/31/20 17 Active acetaminophen (TYLENOL) 325 mg tablet 650 mg, = 2 tab, Tab, Oral, q4hr PRN, Refills 0, Moderate pain 01/31/20 17 Active ascorbic acid, vitamin C, 500 mg capsule Take by mouth. Active aspirin 81 mg EC tablet Take 1 tablet (81 mg total) by mouth. 09/01/20 22 Active cholecalciferol (VITAMIN D-3) 25 mcg (1,000 unit) capsule Take 25 mcg by mouth. 10/03/20 21 Active hydrALAZINE (APRESOLINE) 50 mg tablet Take 1 tablet (50 mg total) by mouth 4 (four) times a day. 12/24/19 24 Active NIFEdipine CC (ADALAT CC) 60 mg 24 hr tablet Take 1 tablet (60 mg total) by mouth 2 (two) times a day. 12/24/19 24 Active torsemide (DEMADEX) 20 mg tablet Take 2 tablets (40 mg total) by mouth 2 (two) times a day. 11/05/20 23 Active zinc sulfate (ZINCATE) 220 mg (50 mg elemental zinc) capsule Take 1 capsule (220 mg total) by mouth. Active spironolactone (Aldactone) 50 mg tablet Take 1 tablet (50 mg total) by mouth 1 (one) time each day. 90 each 3 11/11/20 24 Active pantoprazole (PROTONIX) 40 mg EC tablet TAKE 1 TABLET BY MOUTH EVERY DAY 90 tablet 1 12/08/19 25 Active carvediloL (COREG) 25 mg tablet TAKE 1 TABLET BY MOUTH TWICE A DAY 180 tablet 3 12/14/19 25 Active rosuvastatin (CRESTOR) 5 mg tablet TAKE 1 TABLET BY MOUTH EVERY DAY 90 tablet 3 12/16/19 25 Active albuterol HFA (Proventil HFA) 90 mcg/actuation inhalerIndicati ons:Chronic obstructive pulmonary disease with acute exacerbation (CMS/HCC),Chron ic hypoxemic respiratory failure,Stage 3b chronic kidney disease (CMS/HCC),Upper respiratory tract infection, unspecified type,Essential hypertension, benign Inhale 2 puffs by mouth every 4 (four) hours if needed for wheezing or shortness of breath. 6.7 g 01/19/20 25 026 Active ferrous sulfate 325 mg (65 mg elemental iron) tablet TAKE 1 TABLET BY MOUTH TWICE A DAY 180 tablet 3 01/29/20 25 Active albuterol HFA (PROAIR HFA ; PROVENTIL HFA ; VENTOLIN HFA) 90 mcg/actuation inhaler Inhale 2 puffs by mouth every 4 (four) hours if needed for wheezing. 10/27/20 23 025 Discontinued(Re order) ferrous sulfate 325 mg (65 mg elemental iron) tablet Take 1 tablet (325 mg total) by mouth every other day. 03/16/20 24 025 Discontinued amoxicillin-cla vulanate (AUGMENTIN) 875-125 mg per tablet Take 1 tablet by mouth 2 (two) times a day for 10 days. 20 each 01/19/20 25 025 Active Problems Problem Noted Date Diagnosed Date Chronic hypoxemic respiratory failure 08/01/2023 Overview (10/08/2024): Last Assessment & Plan: Given that the patient developed oxygen desaturation to 88% in the setting of COPD stage II and CHF with ejection fraction 25% with the possibility of pulmonary hypertension I do think is appropriate oxygen at 1 L/min during ambulation. I have made a prescription for portable oxygen concentrator. She should see cardiology soon as possible to be optimized regarding the treatment of heart failure. Stage 2 moderate COPD by GOLD classification 05/2023 Overview (10/08/2024): Last Assessment & Plan: Mrs. Patel is an 82-year-old woman, ex-smoker more than 40 pack years who now has developed stage II COPD. She has minimal symptoms and does not complaint of wheezing or coughing. I recommended her to use her rescue inhaler but she preferred to hold it given that she is able to do all of her regular activities. I will see her back in 4 months for follow-up. Acute on chronic systolic congestive heart failu re 11/09/2021 Overview (10/08/2024): Patient was hospitalized for shortness of breath September 2021. Echocardiogram showed reduced ejection fraction of 25 to 30% Colostomy in place 09/21/2021 Congenital solitary kidney 09/21/2021 Unsteady gait 09/23/2019 CKD (chronic kidney disease) stage 3, GFR 30-59 ml/min 01/09/2019 Mixed hyperlipidemia 06/18/2017 Overview (10/08/2024): Poorly tolerated statins and Zetia Nephrolithiasis 12/24/2016 Morbid obesity 11/11/2014 Overview (10/08/2024): BMI 42.29 on 10/18/14. Contact dermatitis and eczema 11/19/2006 Overview (10/08/2024): Contact dermatitis and other eczema, due to unspecified cause Essential hypertension, benign 11/19/2006 Encounters Date Type Department Care Team Description 02/04/2025 Telephone Pulmonolgy - [place] [address] [facility] [address] [place] [address] Salima Martinez NP durable medical equipment 01/19/2025 11:34 AM EST - 01/19/2025 11:59 PM EST Hospital Encounter [address] [phone] Chronic obstructive pulmonary disease, unspecified COPD type (CMS/HCC); Chronic hypoxemic respiratory failure (CMS/HCC); Stage 2 moderate COPD by GOLD classification (CMS/HCC); Stage 3b chronic kidney disease (CMS/HCC); Upper respiratory tract infection, unspecified type; Essential hypertension, benign Discharge Disposition: Home or Self Care 01/19/2025 11:15 AM EST Office Visit Adult Medicine [address] [phone] Dinora Bravo PA Chronic obstructive pulmonary disease with acute exacerbation (CMS/HCC) (Primary Dx); Chronic hypoxemic respiratory failure (CMS/HCC); Stage 3b chronic kidney disease (CMS/HCC); Upper respiratory tract infection, unspecified type; Essential hypertension, benign 01/18/2025 Telephone Adult Medicine [address] [phone] Jamal Roman PA Cough from Last 3 Months Immunizations Name Administration Dates Next Due Influenza trivalent, 0.5mL ( Fluad) 65yo and older 09/21/2021,10/13/2020,08/12/2019 Influenza trivalent, 0.5mL, preservative free (Fluarix; FluLaval; Fluzone) ages 6mo and older (Afluria) 3 years and older 11/06/2016,09/07/2015,10/18/2014,10/21,12/11/2011,10/05/2010,11/08/2009 ,09/24/2008,09/08/2007 Pfizer SARS-CoV-2 COVID-19, mRNA, LNP-S, preservative free 03/06/2021,02/11/2021 Pneumococcal conjugate 13 va lent (Prevnar 13, PCV13) 2mo and older 11/06/2016 Pneumococcal polysaccharide 23 valent (Pneumovax 23) 2yo and older 04/21/2014,04/15/2007 Td Tetanus diptheria (Tdvax) 7yo and older 12/19/2006 Zoster Live 10/21/2013 Surgical History Surgery Date Site/Laterality Comments OTHER SURGICAL HISTORY PROCEDURE: HISTORICAL TOTAL HYSTERECTOMY W/O BSO COLONOSCOPY 10/27/07 PROCEDURE: AK COLONOSCOPY STOMA DX INCLUDING COLLJ SPEC SPX; COMMENT: Up to cecum, regular preparation, sigmoid polyp-removed(tubular adenoma) COLONOSCOPY 05/04/11 PROCEDURE: AK COLONOSCOPY STOMA DX INCLUDING COLLJ SPEC SPX; COMMENT: normal; repeat in five eyars OTHER SURGICAL HISTORY PROCEDURE: LAPAROSCOPIC CHOLECYSTECT CYSTOSCOPY 12/16/16 PROCEDURE: HISTORICAL CYSTOSCOPY; COMMENT: R UVJ stent OTHER SURGICAL HISTORY 2018 PROCEDURE: AK COLOSTOMY/SKIN LEVEL CECOSTOMY; COMMENT: bmc large bowel obstruction due to incarcerated umbilical hernia requiring colostomy Medical History Medical History Date Comments Essential hypertension, benign 11/19/2006 D X:Essential hypertension, benign Tobacco use disorder 12/19/2006 DX:Tobacco use disorder 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1948 DX:Meningitis Nephrolithiasis 12/24/2016 DX:Nephrolithias is History of Clostridium diffi cile infection 02/26/2017 DX:History of Clostridium di fficile infection Mixed hyperlipidemia 06/18/2017 DX:Mixed hy perlipidemia CKD (chronic kidney disease) stage 3, GFR 30-59 ml/min (CMS/HCC) 01/09/2019 DX:CKD (chronic kidney dise ase) stage 3, GFR 30-59 ml/min (HCC) Family History Medical History Relation Name Comments Breast cancer Neg Hx Relation Name Status Comments Brother 1 Alive 3, no known med ical problems Brother 2 Alive Brother 3 Alive Father some form of alicia ne cancer Mother ?DM, CHF Sister Alive 1, no known med ical problems Son Alive Social History Tobacco Use Types Packs/Day Years [...] on file Sexual Orientation Not on file Obstetrics History Last Filed Vital Signs Vital Sign Reading [...] Mass Index 33.01 01/19/2025 11:08 AM EST Plan of Treatment Upcoming Encounters Date Type Department Care Team (Late st Contact Info) Description 02/24/2025 12:30 PM EDT [facility] [address] [facility] [address] [place] [phone] Kaushal Fernandez 02/24/2025 1:20 PM EDT [facility] [address] [phone] Salima Martinez NP [address] [facility] [address] [place] [address] 05/26/2025 2:30 PM EDT Office Visit Adult Medicine [facility] [address] [place] [phone] Jamal Roman PA [address] [place] [address] Health Maintenance Due Date Last Done Comments Zoster Vaccines (2 of 3) 12/16/2013 10/21/2013 RSV Immunization Patients 60+ Years Old (1 - 1-dose 75+ series) 2017 Social Influencers of Health Screening 11/03/2022 Hypertension/CHF/CAD Annual BMP Blood Test 11/04/2022 06/29/2021 Depression Screening 03/16/2025 03/16/2024 Falls Risk Assessment 03/16/2025 03/16/2024 Medicare Annual Wellness Visit 03/16/2025 03/16/2024 Influenza Vaccine (#1) 2025 , 10/13/2020, 08/12/2019, Additional history exists Postponed from 07/26/2024 (Patient Refused) COVID-19 Vaccine ( season) 2025 03/07/2021, 03/06/2021, 02/11/2021 Postponed from 07/26/2024 (Patient Refused) Cholesterol Screening (Lipid Panel) 06/29/2026 06/29/2021 DTaP,Tdap,and Td Vaccines (2 - Td or Tdap) 11/06/2029 12/19/2006, 12/19/2006 Postponed from 12/19/2016 (Patient Refused) Pneumococcal Vaccine: 50+ Years Completed 10/12/2018, 11/06/2016, 04/21/2014, Additional history exists HIB Vaccines Aged Out No longer eligi ble based on patient's age to complete this topic HPV Vaccines Aged Out No longer eligi ble based on patient's age to complete this topic Hepatitis A Vaccines Aged Out No long er eligible based on patient's age to complete this topic Hepatitis B Vaccines Aged Out No long er eligible based on patient's age to complete this topic IPV Vaccines Aged Out No longer eligi ble based on patient's age to complete this topic MMR Vaccines Aged Out No longer eligi ble based on patient's age to complete this topic Meningococcal ACWY Vaccine Aged Out N o longer eligible based on patient's age to complete this topic Meningococcal B Vacine Aged Out No lo nger eligible based on patient's age to complete this topic Osteoporosis Screening (Bone Density Screening) Discontinued RSV Immunization Patients Under 20 months Aged Out No longer eligible based on patient's age to complete this topic Varicella Vaccines Aged Out No longer eligible based on patient's age to complete this topic Procedures Procedure Name Priority Date/Time Associated Diagnosis Comments XR CHEST 2 VIEWS Routine 01/19/2025 11:4 9 AM EST Chronic obstructive pulmonary disease, unspecified COPD type (CMS/HCC) Chronic hypoxemic respiratory failure (CMS/HCC) Stage 2 moderate COPD by GOLD classification (CMS/HCC) Stage 3b chronic kidney disease (CMS/HCC) Upper respiratory tract infection, unspecified type Essential hypertension, benign DEPRESSION SCREENING Routine 03/16/2024 FALLS RISK ASSESSMENT Routine 03/16/2024 ANNUAL BMP BLOOD TEST Routine 06/29/2021 LIPID PANEL Routine 06/29/2021 from Last 3 Months or Most Recently Relevant to Health Maintenance Results * XR Chest 2 Views (01/19/2025 11:49 AM EST) Anatomical Region Laterality Modality Body Radiographic Iwona ging 01/19/2025 12:3 5 PM EST Impressions 01/19/2025 12:37 PM EST No acute pulmonary pathology. -------- FINAL REPORT -------- Dictated By: Carmen Chatman Dictated Date: 01/19/2025 12:35 ET Assigned Physician: Carmen Chatman Reviewed and Electronically Signed By: Carmen Chatman Signed Date: 01/19/2025 12:37 ET Workstation ID: [id number] Transcribed By: Self Edit Transcribed Date: 01/19/2025 [...] Signed Date: 01/19/2025 12:37 ET Workstation ID: [id number] Transcribed By: Self Edit Transcribed Date: 01/19/2025 12:35 ET Result [facility] Dinora Figueroang Andrei Shelly CARREON IMG XR PROCEDURES Final Result * Falls Risk Assessment (03/16/2024) [facility] Falls Risk Assessment Abstracted Result [facility] Provider HEALTH MAINTENANCE Final Result * Depression Screening (03/16/2024) [facility] Depression Screening Abstracted Result [facility] Provider HEALTH MAINTENANCE Final Result * Annual BMP Blood Test (06/29/2021) [facility] Annual BMP Blood Test Abstracted Result [facility] Provider HEALTH MAINTENANCE Final Result * (ABNORMAL) Lipid panel (06/29/2021) [facility] LDL/HDL Ratio 6(A) 0 - 4 Triglycerides 628(A) 0 - 150 mg/dL Cholesterol 226(A) 0 - 200 mg/dL HDL 36(A) >=40 mg/dL LDL Cholesterol 132(A) 0 - 100 mg/dL Blood Venous blood specimen / Unknown Result [facility] Provider LAB BLOOD ORDERABLES Tiny l Result from Last 3 Months or Most Recently Relevant to Health Maintenance [facility] Care Teams Truck Car And Bus Cleaner Relationship Specialty Start Date End Date Jamal Roman PA [address] [place] [address] PCP - General Internal Medicine 02/22/21
== END 2025-02-17 10:04 | disposition home or self-care (01) ==
LOC: HO.HKAS 09:42
PROVIDERS: PCP Physician Assistant Medical; Visit Provider Internal Medicine Hypertension Specialist
DX: N18.32 Chronic kidney disease, stage 3b (principal)
CPT/HCPCS: 99214

== ENCOUNTER 2025-02-17 09:42 | Outpatient (REF) | payer MEDICARE, OTHER, SELFPAY ==
[2025-02-17 18:32] LABS: Hematocrit 35.4 % (37.0-47.0); Hemoglobin 11.2 g/dl (12.0-16.0); Mean Corpuscular HGB Conc 31.6 g/dl (31.0-35.0); Mean Corpuscular Volume 94.9 fL (80.0-98.0); Mean Platelet Volume 10.2 fL (9.4-12.3); Platelet Count 147 X10*3/uL (160-400); Red Blood Count 3.73 X10*6/uL (4.20-5.50); Red Cell Distribution Width 13.3 % (11.0-16.0); White Blood Count 8.1 X10*3/uL (4.8-10.8)
[2025-02-17 18:45] LABS: Anion Gap 13 (12-20); Blood Urea Nitrogen 79 mg/dL (9-16); Calcium 9.6 mg/dL (8.4-10.2); Carbon Dioxide 20 mmol/L (22-29); Chloride 110 mmol/L (96-108); Estimated Glomerular Filt Rate 22; Glucose Random 113 mg/dL (60-115); Potassium 4.4 mmol/L (3.3-5.1); Sodium 139 mmol/L (135-145)
== END 2025-02-17 09:43 | disposition home or self-care (01) ==
LOC: HO.HKASLDS 09:42
PROVIDERS: PCP Physician Assistant Medical; Visit Provider Internal Medicine Hypertension Specialist
DX: N18.32 Chronic kidney disease, stage 3b (principal)
CPT/HCPCS: 36415; 80048; 85027; 99212

== ENCOUNTER 2025-08-18 09:34 | Outpatient (AMB) | payer MEDICARE, OTHER, SELFPAY ==
[2025-08-18 09:35] VITALS: BP 177/72; BMI 32.6
--- NOTE | 2025-08-18 09:35 | HO.NEPHOV ---
Vital Signs 08/18/25 09:35 Height 5 ft Weight 167 lb BMI 32.6 BP 177/72 H Blood Pressure Location Lt brachial Position Sitting Intake Visit Reasons: 6mon follow-up w/labs-Conf Loan Consultant Required: No Accompanied by: Self / Same As Patient Allergies No Known Allergies Allergy (Verified 08/18/25 09:36) Medication List - Last Reconciled 08/18/25 by Torres Branham MD albuterol sulfate 90 mcg/actuation inhalation carvedilol 25 mg PO BID ferrous sulfate 325 mg PO BID hydralazine 50 mg PO QID nifedipine ER 90 mg PO DAILY pantoprazole 40 mg PO DAILY rosuvastatin 5 mg PO DAILY spironolactone 50 mg PO DAILY torsemide 40 mg PO DAILY HPI Comments Details: Veronica is a elderly woman with a history of ischemic cardiomyopathy with EF of 25% by echo and 44% by nuclear. She has a history of chronic kidney disease. Back in April of 2023 she sustained acute kidney injury with a creatinine peaking at 2.5 mg/dL. She is currently in a wheelchair. Accompanied by her son. She is on home oxygen. 08/18/2025. This is a tele visit. She is currently on torsemide 40 mg q.a.m. along with spironolactone. She has lost about 20 lb in the last 6 months. No edema. No shortness of breath. Appetite is good no nausea or vomiting. [facility] Medical History (Updated 02/17/25 @ 10:00 by Torres Branham MD) CKD (chronic kidney disease) Colostomy in place Family History Mother CKD (chronic kidney disease) Father Cancer Maternal Grandmother CKD (chronic kidney disease) Social History Alcohol intake: never Patient Tobacco Use Status: Former Tobacco user Physical Exam Vital Signs: Last Vital Signs BP 177/72 H 08/18/25 09:35 BMI result Body Mass Index 32.6 Telehealth Telehealth Telehealth Platform: Telephone Location of provider rendering services: practice address Location of patient: address on file Patient Identification confirmed using: Name, : Yes Telehealth method: voice only Patient verbally consented to treatment: Yes Patient verbally consented to billing insurance company: Yes Patient informed of any privacy concerns related to visit: Yes Minutes spent on Phone/Video with Pt.: 15 Results Reviewed Results Reviewed: 08/12/2025 Creatinine bumped up to 2.5 Nephrology Results: Hgb, (12.0-16.0) 11.2 g/dl L 02/17/25 WBC, (4.8-10.8) 8.1 X10*3/uL 02/17/25 Plt Count, (160-400) 147 X10*3/uL L 02/17/25 Sodium, (135-145) 139 mmol/L 02/17/25 Potassium, (3.3-5.1) 4.4 mmol/L 02/17/25 Chloride, (96-108) 110 mmol/L H 02/17/25 Carbon Dioxide, (22-29) 20 mmol/L L 02/17/25 BUN, (9-16) 79 mg/dL H 02/17/25 Creatinine, (0.5-1.4) 2.18 mg/dL H 02/17/25 Calcium, (8.4-10.2) 9.6 mg/dL 02/17/25 Assessment & Plan Assessment & Plan (1) CKD (chronic kidney disease) stage 3, GFR 30-59 ml/min: Comment: Cr 1.75 as on 02/11/25 Code(s): N18.30 - Chronic kidney disease, stage 3 unspecified Category: Medical Qualifiers: Chronic kidney disease stage 3 subtype: stage 3b (GFR 30-44) Qualified Code(s): N18.32 - Chronic kidney disease, stage 3b Plan CKD 3B. Renal ultrasound?suggestive of right renal atrophy, however no obstructive etiology -Losartan on hold Continue to avoid nephrotoxic agents including NSAIDs. OK to stop Omeprazole She will benefit from SGLT 2 inhibitors. Chronic heart failure with reduced ejection fraction, EF 25 to 30% Appears well compensated. She will continue to follow-up with cardiology. Hypertension : Blood pressure is acceptable. She continue with the low-sodium diet. No change in antihypertensive medications. Edema : Keep torsemide po 40mg 2x/day Normocytic anemia Thrombocytopenia, ?chronic, at baseline Status post colostomy/history of intestinal obstruction Patient has had colostomy for many years, no blood loss has been reported from colostomy. h/o Left thyroid lobe CT: Left thyroid lobe 2.5 cm isodense nodule is unchanged from 2017. 08/18/2025 Feels a sustained acute kidney injury superimposed on chronic kidney disease Acute kidney injury is due to hypoperfusion. She has lost significant fluid weight. She is on high dose of torsemide along with spironolactone. Plan decrease torsemide from 40 mg q.a.m. to 20 mg Q a.m.. Watch weight at home. Monitor blood pressure at home. Watch for leg edema. Recheck renal panel in the next few weeks. Return to clinic in 4-5 weeks Orders: Orders Basic Metabolic Panel 4 Weeks N18.32 - Chronic kidney disease, stage 3b Medications: Changed From torsemide 40 mg PO DAILY To torsemide 20 mg PO DAILY Coding Level of Care Code Tele Est Pt Level 3 (33981) Diagnoses Stage 3b chronic kidney disease N18.32 Chronic kidney disease stage 3 subtype: stage 3b (GFR 30-44)
--- OUTSIDE RECORDS SUMMARY | 2025-08-18 11:27 | XMS_ITS | Clinical Summary ---
Author Organization [facility] [address] [place] [address] [place] [phone] Phone Care Team Providers Care Anglesmith Name Role Phone Jamal Roman Primary Care Provider [phone] Allergies Active Allergy Reactions Criticality Noted Date Comments Azithromycin Anaphylaxis High 11/05/2023 Anaphylaxis with azithromycin during hospitalization for pneumonia Ezetimibe 05/20/2007 tired and achy Pravastatin 11/09/2015 Tired and muscle aches Simvastatin 04/15/2007 tired and mucles aches Medications multivitamin (MULTIPLE VITAMINS ORAL) 1 tab, Tab, Oral, QLUNCH, Refills 0 7 Active acetaminophen (TYLENOL) 325 mg tablet 650 mg, = 2 tab, Tab, Oral, q4hr PRN, Refills 0, Moderate pain 7 Active ascorbic acid, vitamin C, 500 mg capsule Take by mouth. Activ e aspirin 81 mg EC tablet Take 1 tablet (81 mg total) by mouth. 2 Active cholecalciferol (VITAMIN D-3) 25 mcg (1,000 unit) capsule Take 25 mcg by mouth. 1 Active hydrALAZINE (APRESOLINE) 50 mg tablet Take 1 tablet (50 mg total) by mouth 4 (four) times a day. 4 Active NIFEdipine CC (ADALAT CC) 60 mg 24 hr tablet Take 1 tablet (60 mg total) by mouth 2 (two) times a day. 4 Active zinc sulfate (ZINCATE) 220 mg (50 mg elemental zinc) capsule Take 1 capsule (220 mg total) by mouth. Active spironolactone (Aldactone) 50 mg tablet Take 1 tablet (50 mg total) by mouth 1 (one) time each day. 90 each 3 4 Active carvediloL (COREG) 25 mg tablet TAKE 1 TABLET BY MOUTH TWICE A DAY 180 tablet 3 5 Active rosuvastatin (CRESTOR) 5 mg tablet TAKE 1 TABLET BY MOUTH EVERY DAY 90 tablet 3 5 Active ferrous sulfate 325 mg (65 mg elemental iron) tablet TAKE 1 TABLET BY MOUTH TWICE A DAY 180 tablet 3 5 Active spironolactone (ALDACTONE) 25 mg tablet TAKE 1 TABLET BY MOUTH EVERY DAY 90 tablet 3 5 Active torsemide (DEMADEX) 20 mg tablet TAKE 2 TABLETS BY MOUTH TWICE A DAY 360 tablet 3 5 Active albuterol HFA (PROAIR HFA ; PROVENTIL HFA ; VENTOLIN HFA) 90 mcg/actuation inhalerIndication s:Chronic obstructive pulmonary disease with acute exacerbation (CMS/HCC V24, [facility] V28),Chronic hypoxemic respiratory failure (CMS/HCC V24, [facility] V28),Stage 3b chronic kidney disease (CMS/HCC V24, CMS/HCC V28),Upper respiratory tract infection, unspecified type,Essential hypertension, benign INHALE 2 PUFFS BY MOUTH EVERY 4 (FOUR) HOURS IF NEEDED FOR WHEEZING OR SHORTNESS OF BREATH. 6.7 each 3 5 02/23/20 26 Active pantoprazole (PROTONIX) 40 mg EC tablet TAKE 1 TABLET BY MOUTH EVERY DAY 90 tablet 1 5 Active Active Problems Problem Noted Date Diagnosed Date Chronic hypoxemic respirator y failure (CMS/HCC V24, CMS/HCC V28) 08/01/2023 Overview (10/08/2024): Last Assessment & Plan: [...] heart failure. Stage 2 moderate COPD by GOL D classification ([facility] V24, [facility] V28) 08/01/2023 Overview (10/08/2024): Last Assessment & Plan: Mrs. [...] months for follow-up. Acute on chronic systolic co ngestive heart failure ([facility] V24, [facility] V28) 11/09/2021 Overview (10/08/2024): Patient was hospitalized for shortness of breath September 2021. Echocardiogram showed reduced ejection fraction of 25 to 30% Colostomy in place ([facility] V24, [facility] V28) Congenital solitary kidney 09/21/2021 Unsteady gait 09/23/2019 CKD (chronic kidney disease) stage 3, GFR 30-59 ml/min ([facility] V24, [facility] V28) 01/09/2019 Mixed hyperlipidemia 06/18/2017 Overview (10/08/2024): Poorly tolerated statins and Zetia Nephrolithiasis 12/24/2016 Morbid obesity ([facility] V24, [facility] V28) 2013 Overview (10/08/2024): BMI 42.29 on 10/18/14. Contact dermatitis and eczema 11/19/2006 Overview (10/08/2024): Contact dermatitis and other eczema, due to unspecified cause Essential hypertension, benign 11/19/2006 Encounters Date Type Department Care Team Description 05/26/2025 2:30 PM EDT Office Visit Adult Medicine [address] [phone] [place], Jamal D, PA Essential hypertension, benign (Primary Dx); Acute on chronic systolic congestive heart failure ([facility] V24, [facility] V28); Chronic hypoxemic respiratory failure ([facility] V24, [facility] V28); Stage 3b chronic kidney disease ([facility] V24, [facility] V28); Mixed hyperlipidemia; Congenital solitary kidney; Stage 2 moderate COPD by GOLD classification ([facility] V24, [facility] V28) from Last 3 Months Immunizations Name Administration Dates Next Due Influenza trivalent, 0.5mL ( Fluad) 65yo and older 09/21/2021,10/13/2020,08/12/2019 Influenza trivalent, 0.5mL, preservative free (Fluarix; FluLaval; Fluzone) ages 6mo and older (Afluria) 3 years and older 11/06/2016,09/07/2015,10/18/2014,10/21,12/11/2011,10/05/2010,11/08/2009 ,09/24/2008,09/08/2007 Hmizate.ma SARS-CoV-2 COVID-19, mRNA, LNP-S, preservative free 03/06/2021,02/11/2021 Pneumococcal conjugate 13 va lent (Prevnar 13, PCV13) 2mo and older 11/06/2016 Pneumococcal polysaccharide 23 valent (Pneumovax 23) 2yo and older 04/21/2014,04/15/2007 Td Tetanus diptheria (Tdvax) 7yo and older 12/19/2006 Zoster Live 10/21/2013 Surgical History Surgery Date Site/Laterality Comments OTHER SURGICAL HISTORY PROCEDURE: HISTORICAL TOTAL HYSTERECTOMY W/O BSO COLONOSCOPY 10/27/07 PROCEDURE: TN COLONOSCOPY STOMA DX INCLUDING COLLJ SPEC SPX; COMMENT: Up to cecum, regular preparation, sigmoid polyp-removed(tubular adenoma) COLONOSCOPY 05/04/11 PROCEDURE: TN COLONOSCOPY STOMA DX INCLUDING COLLJ SPEC SPX; COMMENT: normal; repeat in five eyars OTHER SURGICAL HISTORY PROCEDURE: LAPAROSCOPIC CHOLECYSTECT CYSTOSCOPY 12/16/16 PROCEDURE: HISTORICAL CYSTOSCOPY; COMMENT: R UVJ stent OTHER SURGICAL HISTORY 2018 PROCEDURE: TN COLOSTOMY/SKIN LEVEL CECOSTOMY; COMMENT: [facility] large bowel [...] kidney disease) stage 3, GFR 30-59 ml/min (CMS/HCC V24, CMS/HCC V28) 01/09/2019 DX:CKD (chronic kidney disea se) stage 3, GFR 30-59 ml/min ([facility]) Family History Medical History Relation Name Comments Breast cancer Neg Hx Relation Name Status Comments Brother 1 Alive 3, no known med ical problems Brother 2 Alive Brother 3 Alive Father some form of alicia ne cancer Mother ?DM, CHF Sister Alive 1, no known med ical problems Son Alive Social History Tobacco Use Types Packs/Day Years Used Date Smoking Tobacco: Some Days Cigarettes 0.5 1.1 Started: 08/25/2020; Last attempted to quit: 10/10/2021 Smokeless Tobacco: Current Tobacco Cessation:Ready to Q uit: Not Asked; Counseling Given: Not Answered Alcohol Use Standard Drinks/Week Comments Yes 0 (1 standard drink = 0.6 oz pur e alcohol) Housing Instability Answer Date Recorde d Are you worried that in the next 2 months you may not have stable housing? No 05/26/2025 Food Access & Nutrition Answer Date Rec orded Do you have access to a vari ety of food including fruits and vegetables? Yes 05/26/2025 Health Literacy Answer Date Recorded How often do you need to hav e someone help you when you read instructions, pamphlets, or other written material from your doctor or pharmacy? Never 05/26/2025 Caregiver: How often do you need to have someone help you when you read instructions, pamphlets, or other written material from your doctor or pharmacy? Not on file 05/26/2025 Financial Risk Answer Date Recorded How hard is it for you to pa y for the very basics like food, housing, medical care, and air conditioning / heating? Not very hard 05/26/2025 Transportation Answer Date Recorded Has the lack of transportati on kept you from meetings, work, or from getting things needed for daily living? No Has the lack of transportati on kept you from medical appointments or from getting medications? No 05/26/2025 Social Isolation Answer Date Recorded How often do you feel lonely or isolated from th ose around you? Never 05/26/2025 Food Risk Answer Date Recorded Within the past 12 months we worried whether our food would run out before we got money to buy more. Never true 05/26/2025 Within the past 12 months th e food we bought just didn't last and we didn't have money to get more. Never true 05/26/2025 Dependent Care Answer Date Recorded Do you need help finding or paying for care for your loved ones. For example, child nutrition director or elderly care for an older adult? No 05/26/2025 Education Answer Date Recorded Do you think completing more education or training, like finishing a GED, going to college, or learning a trade, would be helpful for you? No 05/26/2025 Employment and Income Answer Date Recor ded During the last four weeks, have you been actively looking for work? No 05/26/2025 Living Situation Answer Date Recorded What is your living situation? 0 05/26/2025 Comments No Sex and Gender Information Value Date Recorded Sex Assigned at Not on file Legal Sex Female 11:14 AM EST Gender Identity Not on file Sexual Orientation Not on file Obstetrics History Last Filed Vital Signs Vital Sign Reading Time Taken Comments Blood Pressure 120/74 05/26/2025 2:34 PM EDT Pulse 67 05/26/2025 2:25 PM EDT Temperature 36.2 C (97.1 F) 05/26/2025 2:25 PM EDT Respiratory Rate 16 05/26/2025 2:25 PM EDT Oxygen Saturation 97% 05/26/2025 2:25 PM EDT Inhaled Oxygen Concentration - - Weight 75.8 kg (167 lb 3.2 oz) 05/26/2025 2:25 P M EDT Height 162.6 cm (5' 4 ) 05/26/2025 2:25 PM EDT Body Mass Index 28.7 05/26/2025 2:25 PM EDT Plan of Treatment Upcoming Encounters Date Type Department Care Team (Late st Contact Info) Description 11/30/2025 10:45 AM EST Office Visit Adult Medicine [address] [phone] Jamal Roman PA [address] [place] [phone] 03/28/2026 1:00 PM EDT Office Visit Pulmonology - [place] [address] [facility] [address] [place] [phone] Salima Martinez, JAYNE [address] [place] [phone] Health Maintenance Due Date Last Done Comments Hypertension/CHF/CAD Annual BMP Blood Test 11/04/2022 06/29/2021 Medicare Annual Wellness Visit 03/16/2025 03/16/2024 COVID-19 Vaccine ( season) 2025 03/07/2021, 03/06/2021, 02/11/2021 Influenza Vaccine (#1) 2025 , 10/13/2020, 08/12/2019, Additional history exists Falls Risk Assessment 05/26/2026 05/26/2025, 024 Social Influencers of Health Screening 05/26/2026 05/26/2025 Cholesterol Screening (Lipid Panel) 06/29/2026 06/29/2021 DTaP,Tdap,and Td Vaccines (2 - Td or Tdap) 11/06/2029 12/19/2006, 12/19/2006 Postponed from 12/19/2016 (Patient Refused) Zoster Vaccines Discontinued 10/21/2013 Pneumococcal Vaccine: 50+ Years Completed 10/12/2018, 11/06/2016, 04/21/2014, Additional history exists Depression Screening Completed 05/26/2025, 03/16/20 24 HIB Vaccines Aged Out No longer eligi [...] age to complete this topic Meningococcal B Vaccine Aged Out No l onger eligible based on patient's age to complete this topic Osteoporosis Screening (Bone Density Screening) Discontinued RSV Immunization Adult Patients Discontinued RSV Immunization Patients Under 20 months Aged Out No longer eligible based on patient's age to complete this topic Varicella Vaccines Aged Out No longer eligible based on patient's age to complete this topic Procedures Procedure Name Priority Date/Time Associated Diagnosis Comments DEPRESSION SCREENING Routine 03/16/2024 FALLS RISK ASSESSMENT Routine 03/16/2024 ANNUAL BMP BLOOD TEST Routine 06/29/2021 LIPID PANEL Routine 06/29/2021 from Last 3 Months or Most Recently Relevant to Health Maintenance Results * Falls Risk Assessment (03/16/2024) [facility] Falls Risk Assessment Abstracted Result [facility] Provider HEALTH MAINTENANCE Final Result * Depression Screening (03/16/2024) [facility] Depression Screening Abstracted Result [facility] Provider HEALTH MAINTENANCE Final Result * Annual BMP Blood Test (06/29/2021) [facility] Annual BMP Blood Test Abstracted Result [facility] Provider HEALTH MAINTENANCE Final Result * (ABNORMAL) Lipid panel (06/29/2021) [facility] LDL/HDL Ratio 6(A) 0 - 4 Triglycerides 628(A) 0 - 150 mg/dL Cholesterol 226(A) 0 - 200 mg/dL HDL 36(A) >=40 mg/dL LDL Cholesterol 132(A) 0 - 100 mg/dL Blood Venous blood specimen / Unknown us Historical Provider LAB BLOOD ORDERABLES Tiny l Result from Last 3 Months or Most Recently Relevant to Health Maintenance Insurance MEDICARE [facility] Care Teams Anglesmith Relationship Specialty Start Date End Date Jamal Roman PA [address] [place] [address] PCP - General Internal Medicine 02/22/21
--- OUTSIDE RECORDS SUMMARY | 2025-08-18 11:27 | XMS_ITS ---
Author Name [facility] Organization Unknown Care Team Organization Name Specialty Phone Email Start Date End Da te [facility] DALTON BRITT Primary Care 10/02/2022 024
--- OUTSIDE RECORDS SUMMARY | 2025-08-18 11:27 | XMS_ITS | Clinical Summary ---
Author Organization [facility] Address [address] [facility] [address] [place] [address] Phone Care Team Providers Care Emergency Veterinary Technician Name Role Phone Jamal Roman PA-C Primary [...] Nephrolithiasis 12/24/2016 History of cholecystectomy 12/11/2011 Immunizations Immunization Administration Dates Next Due Influenza Split High [...] Date Last Done Comments Influenza Vaccine (#1) 2025 , 10/13/2020, 08/12/2019, Additional history exists Pneumococcal Vaccine: 50+ Years Completed 10/12/2018, 11/06/2016, 04/21/2014, Additional history exists Pneumococcal Vaccine: Peds (0 to 5 Years) and At-Risk Patients (6 to 49 Years) Discontinued 10/12/2018, 11/06/2016, 04/21/2014, Additional history exists Hepatitis B Vaccine Aged Out No longe r eligible based on patient's age to complete this topic Insurance Medicare Counts Include [facility] Medicare Counts Include [facility] Care Teams Emergency Veterinary Technician Relationship Specialty Start Date End Date Jamal Roman PA-C PCP - General Physician Chair Upholsterer 08/30/21
== END 2025-08-18 10:51 | disposition home or self-care (01) ==
LOC: HO.HKAS 09:34
PROVIDERS: PCP Physician Assistant Medical; Visit Provider Internal Medicine Hypertension Specialist
DX: N18.32 Chronic kidney disease, stage 3b (principal)
CPT/HCPCS: 99213

== ENCOUNTER 2025-10-06 09:39 | Outpatient (AMB) | payer MEDICARE, OTHER, SELFPAY ==
[2025-10-06 09:54] VITALS: BP 140/62
--- NOTE | 2025-10-06 09:54 | HO.NEPHOV_ITS ---
Vital Signs 10/06/25 09:54 Height 5 ft BP 140/62 H Blood Pressure Location Rt brachial Position Sitting Intake Visit Reasons: 5wks f/u w/labs [address] Sql Developer Required: No Accompanied by: Son Allergies piperacillin (From Zosyn) Allergy (Unknown, Verified 10/06/25 10:00) Unknown tazobactam (From Zosyn) Allergy (Unknown, Verified 10/06/25 10:00) Unknown Medication List - Last Reconciled 10/06/25 by Torres Branham MD albuterol sulfate 90 mcg/actuation inhalation carvedilol 25 mg PO BID ferrous sulfate 325 mg PO BID hydralazine 50 mg PO QID nifedipine ER 90 mg PO DAILY pantoprazole 40 mg PO DAILY rosuvastatin 5 mg PO DAILY spironolactone 50 mg PO DAILY torsemide 20 mg PO DAILY HPI Comments Details: Veronica is a elderly woman with a history of ischemic cardiomyopathy with EF of 25% by echo and 44% by nuclear. She has a history of chronic kidney disease. Back in April of 2023 she sustained acute kidney injury with a creatinine peaking at 2.5 mg/dL. She is currently in a wheelchair. Accompanied by her son. She is on home oxygen. 08/18/2025. This is a tele visit. She is currently on torsemide 40 mg q.a.m. along with spironolactone. She has lost about 20 lb in the last 6 months. No edema. No shortness of breath. Appetite is good no nausea or vomiting. 10/06/25 The patient is an 85-year-old female presenting with chronic kidney disease and hypertension. During last visit, Torsemide was decreased from 40 mg down ot 20 mg due to SUAD Cr improved She is back on 40 mg of Torsemide now Her kidney function has shown improvement, with an increase from 21% to 26%, although it remains below the normal range for her age. [facility] Medical History (Updated 02/17/25 @ 10:00 by Torres Branham MD) CKD (chronic kidney disease) Colostomy in place Family History Mother CKD (chronic kidney disease) Father Cancer Maternal Grandmother CKD (chronic kidney disease) Social History (Reviewed 10/06/25 @ 09:56 by JANIE Jean Alcohol intake: never Patient Tobacco Use Status: Former Tobacco user Physical Exam Vital Signs: Last Vital Signs BP 140/62 H 10/06/25 09:54 Const General: comfortable Nutritional Appearance: well nourished Orientation/consciousness: patient oriented x3 Limitations: wheelchair HEENT Head: No normal to inspection Mouth: moist mucous membranes Neck Neck: Yes supple and Yes no JVD Resp Auscultation: clear to auscultation bilaterally and no rales Cardio Jugular venous distension: no JVD Palpation: no palpable S3 and no palpable S4 Heart sounds: no rubs GI Palpation (GI): Soft to palpation and nontender Percussion: No Fluid wave present General: Yes no CVA tenderness Back/Spine/Pelvis Back: no CVA tenderness Skin General skin exam: no rashes or lesions noted Neuro General: patient oriented x3 Extrem General: No clubbing Right lower extremity: ankle Left lower extremity: ankle Results Reviewed Results Reviewed: 10/01/25 Cr 2.16 Nephrology Results: Hgb, (12.0-16.0) 11.2 g/dl L 02/17/25 WBC, (4.8-10.8) 8.1 X10*3/uL 02/17/25 Plt Count, (160-400) 147 X10*3/uL L 02/17/25 Sodium, (135-145) 139 mmol/L 02/17/25 Potassium, (3.3-5.1) 4.4 mmol/L 02/17/25 Chloride, (96-108) 110 mmol/L H 02/17/25 Carbon Dioxide, (22-29) 20 mmol/L L 02/17/25 BUN, (9-16) 79 mg/dL H 02/17/25 Creatinine, (0.5-1.4) 2.18 mg/dL H 02/17/25 Calcium, (8.4-10.2) 9.6 mg/dL 02/17/25 Assessment & Plan Assessment & Plan (1) CKD (chronic kidney disease) stage 3, GFR 30-59 ml/min: Comment: Cr 1.75 as on 02/11/25 Code(s): N18.30 - Chronic kidney disease, stage 3 unspecified Category: Medical Qualifiers: Chronic kidney disease stage 3 subtype: stage 3b (GFR 30-44) Qualified Code(s): N18.32 - Chronic kidney disease, stage 3b Plan CKD 3B. Renal ultrasound?suggestive of right renal atrophy, however no obstructive etio logy -Losartan on hold Continue to avoid nephrotoxic agents including NSAIDs. OK to stop Omeprazole She will benefit from SGLT 2 inhibitors. Chronic heart failure with reduced ejection fraction, EF 25 to 30% Appears well compensated. She will continue to follow-up with cardiology. Hypertension : Blood pressure is acceptable. She continue with the low-sodium diet. No change in antihypertensive medications. Edema : Keep torsemide po 40mg 2x/day Normocytic anemia Thrombocytopenia, ?chronic, at baseline Status post colostomy/history of intestinal obstruction Patient has had colostomy for many years, no blood loss has been reported from colostomy. h/o Left thyroid lobe CT: Left thyroid lobe 2.5 cm isodense nodule is unchanged from 2017. 10/06/25 acute kidney injury superimposed on chronic kidney disease Acute kidney injury is due to hypoperfusion. Resolved after lowering Torsemide Has underlying CKD Volume status acceptable Keep on Torsemide 40 gm daily Low salt diet Watch renal function Orders: Orders Basic Metabolic Panel 3 Months N18.32 - Chronic kidney disease, stage 3b Complete Blood Count no Diff 3 Months N18.32 - Chronic kidney disease, stage 3b Coding Level of Care Code Est Pt Level 4 (81330) Diagnoses Stage 3b chronic kidney disease N18.32 Chronic kidney disease stage 3 subtype: stage 3b (GFR 30-44)
--- OUTSIDE RECORDS SUMMARY | 2025-10-06 10:57 | XMS_ITS | Clinical Summary ---
Author Organization [facility] Address [address] [facility] [address] [place] [address] Phone Care Team Providers Care Teacher Kindergarten Name Role Phone Jamal Roman PA-C Primary [...] age to complete this topic Insurance Medicare [facility] Medicare [facility] Care Teams Teacher Kindergarten Relationship Specialty Start Date End Date Jamal Roman PA-C PCP - General Physician Health Information Assistant 08/30/21
--- OUTSIDE RECORDS SUMMARY | 2025-10-06 10:57 | XMS_ITS | Clinical Summary ---
Author Organization [facility] [address] [place] [address] [place] [phone] Phone Care Team Providers Care [employer]orer Name Role Phone Jamal Roman Primary Care Provider [phone] Allergies Active Allergy Reactions Criticality Noted Date [...] pulmonary disease with acute exacerbation (CMS/HCC V24, CMS/[facility] V28),Chronic hypoxemic respiratory failure (CMS/HCC V24, CMS/[facility] V28),Stage 3b chronic kidney disease (CMS/HCC V24, [...] 2 moderate COPD by GOL D classification ([facility] V24, [facility] V28) 08/01/2023 Overview (10/08/2024): Last Assessment & [...] on chronic systolic co ngestive heart failure ([facility] V24, [facility] V28) 11/09/2021 Overview (10/08/2024): Patient was hospitalized for shortness of breath September 2021. Echocardiogram showed reduced ejection fraction of 25 to 30% Colostomy in place ([facility] V24, [facility] V28) Congenital solitary kidney 09/21/2021 Unsteady gait 09/23/2019 CKD (chronic kidney disease) stage 3, GFR 30-59 ml/min ([facility] V24, [facility] V28) 01/09/2019 Mixed hyperlipidemia 06/18/2017 Overview (10/08/2024): Poorly tolerated statins and Zetia Nephrolithiasis 12/24/2016 Morbid obesity ([facility] V24, [facility] V28) 2013 Overview (10/08/2024): BMI 42.29 on 10/18/14. Contact dermatitis and eczema 11/19/2006 Overview (10/08/2024): Contact dermatitis and other eczema, due to unspecified cause Essential hypertension, benign 11/19/2006 Immunizations Immunization Administration Dates Next Due Influenza trivalent, 0.5mL [...] TOTAL HYSTERECTOMY W/O BSO COLONOSCOPY 10/27/07 PROCEDURE: [place] COLONOSCOPY STOMA DX INCLUDING COLLJ SPEC SPX; COMMENT: Up to cecum, regular preparation, sigmoid polyp-removed(tubular adenoma) COLONOSCOPY 05/04/11 PROCEDURE: [place] COLONOSCOPY STOMA DX INCLUDING COLLJ SPEC SPX; COMMENT: normal; repeat in five eyars OTHER SURGICAL HISTORY PROCEDURE: LAPAROSCOPIC CHOLECYSTECT CYSTOSCOPY 12/16/16 PROCEDURE: HISTORICAL CYSTOSCOPY; COMMENT: R UVJ stent OTHER SURGICAL HISTORY 2018 PROCEDURE: [place] COLOSTOMY/SKIN LEVEL CECOSTOMY; COMMENT: [facility] large bowel [...] disea se) stage 3, GFR 30-59 ml/min ([facility]) Family History Medical History Relation Name Comments [...] care for your loved ones. For example, childcare center administrator or elderly care for an older adult? [...] Date Recorded What is your living situation? Unrecognized valu e 05/26/2025 Comments No Sex and Gender Information [...] 10:45 AM EST Office Visit Adult Medicine [address] [phone] Jamal Roman PA [address] [place] [phone] 03/28/2026 1:00 PM EDT Office Visit Pulmonology [address] [place] [phone] Salima Martinez NP [address] [place] [phone] Health Maintenance Due Date Last Done Comments Hypertension/CHF/CAD Annual BMP Blood Test 11/04/2022 06/29/2021 Medicare Annual Wellness Visit 03/16/2025 03/16/2024 Influenza Vaccine (#1) 2025 , 10/13/2020, 08/12/2019, Additional history exists COVID-19 Vaccine (3 - Pfizer risk series) 11/25/2025 03/06/2021, 02/11/2021 Postponed from 04/03/2021 (Patient Refused) Falls Risk Assessment 05/26/2026 05/26/2025, 024 Social Influencers of Health Screening 05/26/2026 05/26/2025 Cholesterol Screening (Lipid Panel) 06/29/2026 06/29/2021 DTaP,Tdap,and Td Vaccines (2 - Td or Tdap) 11/06/2029 12/19/2006 Postponed from 12/19/2016 (Patient Refused) Zoster [...] Maintenance Results * Falls Risk Assessment (03/16/2024) Pathologist [facility] Falls Risk Assessment Abstracted [facility] Provider HEALTH MAINTENANCE Final Result * Depression Screening (03/16/2024) Pathologist [facility] Depression Screening Abstracted [facility] Provider HEALTH MAINTENANCE Final Result * Annual BMP Blood Test (06/29/2021) Pathologist [facility] Annual BMP Blood Test Abstracted [facility] Provider HEALTH MAINTENANCE Final Result * (ABNORMAL) Lipid panel (06/29/2021) Pathologist [facility] LDL/HDL Ratio 6(A) 0 - 4 Triglycerides 628(A) 0 - 150 mg/dL Cholesterol 226(A) 0 - 200 mg/dL HDL 36(A) >=40 mg/dL LDL Cholesterol 132(A) 0 - 100 mg/dL Blood Venous blood specimen / Unknown [facility] Provider LAB BLOOD ORDERABLES Tiny l Result from Last 3 Months or Most Recently Relevant to Health Maintenance Insurance MEDICARE [facility] Care Teams [employer] Relationship Specialty Start Date End Date Jamal Roman PA [address] [place] [phone] PCP - General Internal Medicine 02/22/21
== END 2025-10-06 10:18 | disposition home or self-care (01) ==
LOC: HO.HKAS 09:40
PROVIDERS: PCP Physician Assistant Medical; Visit Provider Internal Medicine Hypertension Specialist
DX: N18.32 Chronic kidney disease, stage 3b (principal)
CPT/HCPCS: 99214

== ENCOUNTER → 2025-10-06 09:39 | Outpatient (BNVA) | payer MEDICARE, OTHER, SELFPAY | PROVIDERS: PCP Physician Assistant Medical; Visit Provider Internal Medicine Hypertension Specialist | DX: I13.0 Hypertensive heart and chronic kidney disease with heart failure and stage 1 through stage 4 chronic kidney disease, or unspecified chronic kidney disease (principal); N18.32 Chronic kidney disease, stage 3b; I50.9 Heart failure, unspecified; Z87.891 Personal history of nicotine dependence; Z99.81 Dependence on supplemental oxygen | CPT/HCPCS: 99212 ==